=== PATIENT | female | born 1950 | race Caucasian/White ===

== ENCOUNTER 2017-12-28 19:34 | Inpatient (IN) | payer MEDICARE ==
[2017-12-28] MEDS ORDERED: Sodium Chloride 0.9% 1,000 ML IV SCH (20:20)
[2017-12-28 20:41] LABS: % BASOPHILS 0.2 % (0.0-2.0); % EOSINOPHILS 1.1 % (0.0-5.0); % LYMPHOCYTES 16.5 % (20.0-50.0); % NEUTROPHILS 77.2 % (40.0-80.0); EOSINOPHILE ABSOLUTE 0.2 Th/cmm (0.1-0.4); HEMATOCRIT 31.1 % (41.0-60); HEMOGLOBIN 10.3 gm/dL (12-16); LYMPHOCYTE ABSOLUTE 2.4 Th/cmm (1.5-3.0); MEAN CELL VOLUME 79.4 fl (81-100); MEAN CORPUSCULAR HEMOGLOBIN 26.4 pg (27.0-31.0); MEAN CORPUSCULAR HGB CONC 33.3 pg (28.0-36.0); MEAN PLATELET VOLUME 7.1 fl; MONOCYTE ABSOLUTE 0.7 Th/cmm (0.3-1.0); NEUTROPHILE ABSOLUTE 11.1 Th/cmm (1.8-8.0); PLATELET COUNT 330 Th/cmm (150-400); RED BLOOD COUNT 3.92 Mil/cmm (3.80-5.20); RED CELL DISTRIBUTION WIDTH 21.3 % (11.5-20.0); WHITE BLOOD COUNT 14.4 Th/cmm (4.8-10.8)
[2017-12-28 20:56] LABS: ALBUMIN 3.2 gm/dL (3.7-5.3); ANION GAP 13.2 (7.0-16.0); BILIRUBIN,TOTAL 0.5 mg/dL (0.3-1.0); CALCIUM SERUM 9.5 mg/dL (8.6-10.3); CARBON DIOXIDE 27.8 mEq/L (21.0-31.0); CREATININE - SERUM 1.9 mg/dL (0.6-1.2); GFR AFRICAN-AMERICAN 33.8 ml/min (>90); GFR NON AFRICAN-AMERICAN 27.9 ml/min; MAGNESIUM 2.3 mg/dL (1.9-2.7); TOTAL PROTEIN,SERUM 6.3 gm/dL (6.0-8.3)
[2017-12-29 00:57] LABS: URINE SOURCE CATH
[2017-12-29 01:07] LABS: URINE BILIRUBIN NEGATIVE (NEGATIVE); URINE CLARITY CLOUDY (CLEAR); URINE COLOR YELLOW; URINE GLUCOSE (UA) NEGATIVE (NEGATIVE); URINE KETONE NEGATIVE (NEGATIVE); URINE MICROSCOPIC INDICATED? YES
[2017-12-29 01:08] LABS: URINE BLOOD NEGATIVE (NEGATIVE); URINE NITRATE NEGATIVE (NEGATIVE); URINE PROTEIN 30 mg/dL (NEGATIVE); URINE UROBILINOGEN 0.2 E.U./dL (0.2 - 1.0)
[2017-12-29 01:09] LABS: URINE LEUKOCYTE ESTERASE MODERATE (NEGATIVE)
[2017-12-29 01:10] LABS: URINE RBC 0-2 /hpf (0-5)
[2017-12-29 01:11] LABS: URINE BACTERIA 2+ /hpf (NONE SEEN); URINE EPITHELIAL CELLS FEW /lpf (FEW); URINE WBC 25-50 /hpf (0-5)
[2017-12-29 01:24] LABS: AMPHETAMINE URINE NEGATIVE (NEGATIVE); BARBITURATES URINE NEGATIVE (NEGATIVE); COCAINE METABOLITE QUAL URINE NEGATIVE (NEGATIVE); METHAMPHETAMINES QUAL URINE NEGATIVE (NEGATIVE); PHENCYCLIDINE (PCP) URINE NEGATIVE (NEGATIVE)
[2017-12-29 01:25] LABS: BENZODIAZEPINES QUAL URINE NEGATIVE (NEGATIVE); CANNABINOID THC NEGATIVE (NEGATIVE); METHADONE URINE NEGATIVE (NEGATIVE); OPIATES (MORPHINE) QUAL. URINE NEGATIVE (NEGATIVE); TRICYCLICS (TCA) QUAL. URINE NEGATIVE (NEGATIVE)
[2017-12-29] MEDS ORDERED: Ciprofloxacin 400mg Premix PB 400 MG/200 ML BAG IV ONE ×2 (01:41→02:06)
--- NOTE | 2017-12-29 01:48 | ED Physician Chart ---
ED Chief Complaint/HPI - Patient Information Date Seen:: 12/28/17 Time Seen:: 20:25 Chief Complaint:: nausea, vomiting & diarrhea History of Present Illness:: nausea, vomiting & diarrhea in a diabetic with a h/o severe UTI's. and sepsis. Allergies:: Allergies Allergy/AdvReac Type Severity Reaction Status Date / Time Gandolinium related agent Allergy Uncoded 12/28/17 20:24 Vitals:: Vital Signs - 8 hr 12/28/17 20:24 Temp 98.2 F HR 101 RR 20 BP 152/82 O2 Sat % 95 Historian:: Patient, Medical Records Review:: Transfer documents Reviewed ED Review of Systems - Review of Systems General/Constitutional: No fever, No chills, No weight loss, No weakness, No diaphoresis, No edema, No loss of appetite Skin: No skin lesions, No rash, No bruising Head: No headache, No light-headedness Eyes: No loss of vision, No pain, No diplopia ENT: No earache, No nasal drainage, No sore throat, No tinnitus Neck: No neck pain, No swelling, No thyromegaly, No stiffness, No mass noted Cardio Vascular: No chest pain, No palpitations, No PND, No orthopnea, No edema Pulmonary: No SOB, No cough, No sputum, No wheezing GI: Nausea, Vomiting, Diarrhea G/U: Dysuria Musculoskeletal: No bone or joint pain, No back pain, No muscle pain Endocrine: No polyuria, No polydipsia Psychiatric: No prior psych history, No depression, No anxiety, No suicidal ideation Hematopoietic: No bruising, No lymphadenopathy Allergic/Immuno: No urticaria, No angioedema Neurological: No syncope, No focal symptoms, No weakness, No paresthesia, No headache, No seizure, No dizziness, No confusion, No vertigo ED Past Medical History - Past Medical History Past Medical History: HTN, DM Surgical History: other (femur surgery) Family Medical History - Family Member Mother History Unknown: Yes ED Physical Exam - Physical Examination General/Constitutional: Awake, Well-developed, well-nourished, Alert, No distress, GCS 15, Non-toxic appearing, Ambulatory Head: Atraumatic Eyes: Lids, conjuctiva normal, PERRL, EOMI Skin: Nl inspection, No rash, No skin lesions, No ecchymosis, Well hydrated, No lymphadenopathy ENMT: External ears, nose nl, Nasal exam nl, Lips, teeth, gums nl Neck: Nontender, Full ROM w/o pain, No JVD, No nuchal rigidity, No bruit, No mass, No stridor Respiratory: Nl effort/Exclusion, Clear to Auscultation, No Wheeze/Rhonchi/Rales Cardio Vascular: RRR, No murmur, gallop, rubs, NL S1 S2 GI: No tenderness/rebounding/guarding, No organomegaly, No hernia, Normal BS's, Nondistended, No mass/bruits, No McBurney tenderness : No CVA tenderness Other Extremities comments:: LLE with scar from prior femur fracture surgery. ED Labs/Radiology/EKG Results - Lab Results Results: Laboratory Tests 12/28/17 12/28/17 12/29/17 20:35 20:35 00:45 WBC 14.4 H RBC 3.92 Hgb 10.3 L Hct 31.1 L MCV 79.4 L MCH 26.4 L MCHC Differential 33.3 RDW 21.3 H Plt Count 330 MPV 7.1 Neutrophils % 77.2 Lymphocytes % 16.5 L Monocytes % 5.0 Eosinophils % 1.1 Basophils % 0.2 Sodium 135 L Potassium 4.0 Chloride 98 Carbon Dioxide 27.8 Anion Gap 13.2 BUN 32 H Creatinine 1.9 H Est GFR ( Amer) 33.8 Est GFR (Non-Af Amer) 27.9 BUN/Creatinine Ratio 16.8 Glucose 208 H POC Glucose Calcium 9.5 Phosphorus 4.0 Magnesium 2.3 Total Bilirubin 0.5 AST 10 L ALT 7 Alkaline Phosphatase 82 Total Protein 6.3 Albumin 3.2 L Globulin 3.1 Albumin/Globulin Ratio 1.0 Urine Source CATH Urine Color YELLOW Urine Clarity CLOUDY H Urine pH 6.0 Ur Specific [place] 1.010 Urine Protein 30 H Urine Glucose (UA) NEGATIVE Urine Ketones NEGATIVE Urine Blood NEGATIVE Urine Nitrate NEGATIVE Urine Bilirubin NEGATIVE Urine Urobilinogen 0.2 Ur Leukocyte Esterase MODERATE H Urine RBC 0-2 Urine WBC 25-50 H Ur Epithelial Cells FEW Urine Bacteria 2+ H Stool Occult Blood Urine Opiates Screen Urine Methadone Screen Ur Barbiturates Screen Ur Tricyclics Screen Ur Phencyclidine Scrn Amphetamines Screen U Methamphetamines Scrn U Benzodiazepines Scrn U Cocaine Metab Screen U Cannabinoids Screen 12/29/17 12/29/17 12/29/17 00:45 00:45 00:49 WBC RBC Hgb Hct MCV MCH MCHC Differential RDW Plt Count MPV Neutrophils % Lymphocytes % Monocytes % Eosinophils % Basophils % Sodium Potassium Chloride Carbon Dioxide Anion Gap BUN Creatinine Est GFR ( Amer) Est GFR (Non-Af Amer) BUN/Creatinine Ratio Glucose POC Glucose 215 H Calcium Phosphorus Magnesium Total Bilirubin AST ALT Alkaline Phosphatase Total Protein Albumin Globulin Albumin/Globulin Ratio Urine Source Urine Color Urine Clarity Urine pH Ur Specific [place] Urine Protein Urine Glucose (UA) Urine Ketones Urine Blood Urine Nitrate Urine Bilirubin Urine Urobilinogen Ur Leukocyte Esterase Urine RBC Urine WBC Ur Epithelial Cells Urine Bacteria Stool Occult Blood NEGATIVE Urine Opiates Screen NEGATIVE Urine Methadone Screen NEGATIVE Ur Barbiturates Screen NEGATIVE Ur Tricyclics Screen NEGATIVE Ur Phencyclidine Scrn NEGATIVE Amphetamines Screen NEGATIVE U Methamphetamines Scrn NEGATIVE U Benzodiazepines Scrn NEGATIVE U Cocaine Metab Screen NEGATIVE U Cannabinoids Screen NEGATIVE ED Assessment - Assessment General Assessment: called Dr. Reynolds to admit the patient at 1:47 a.m. ED Septic Shock - . Is Septic Shock (SBP<90, OR Lactate>4 mmol\L) present?: No - <6hrs of presentation: Vital Signs: Vital Signs - 8 hr 12/28/17 20:24 Temp 98.2 F HR 101 RR 20 BP 152/82 O2 Sat % 95 ED Reassessment (Disposition) - Reassessment Reassessment Condition:: Improved - Diagnosis Diagnosis:: Nausea, vomiting, diarrhea Diabetes mellitus leukocytosis renal insufficiency anemia h/o sepsis - Patient Disposition Discharge/Transfer:: Acute Care w/in this hosp Admitted to:: Med/Surg Condition at Disposition:: Stable, Improved
[2017-12-29] MEDS ORDERED: Levofloxacin 500mg/100mL 500 MG/100 ML BAG IV SCH (08:27)
[2017-12-29 08:59] LABS: % BASOPHILS 0.3 % (0.0-2.0); % EOSINOPHILS 2.9 % (0.0-5.0); % LYMPHOCYTES 17.8 % (20.0-50.0); % MONOCYTES 5.7 % (2.0-10.0); % NEUTROPHILS 73.3 % (40.0-80.0); EOSINOPHILE ABSOLUTE 0.3 Th/cmm (0.1-0.4); HEMOGLOBIN 9.7 gm/dL (12-16); LYMPHOCYTE ABSOLUTE 1.7 Th/cmm (1.5-3.0); MEAN CELL VOLUME 81.7 fl (81-100); MEAN CORPUSCULAR HEMOGLOBIN 27.4 pg (27.0-31.0); MEAN CORPUSCULAR HGB CONC 33.5 pg (28.0-36.0); MEAN PLATELET VOLUME 6.9 fl; MONOCYTE ABSOLUTE 0.6 Th/cmm (0.3-1.0); NEUTROPHILE ABSOLUTE 7.2 Th/cmm (1.8-8.0); PLATELET COUNT 336 Th/cmm (150-400); RED BLOOD COUNT 3.55 Mil/cmm (3.80-5.20); RED CELL DISTRIBUTION WIDTH 21.7 % (11.5-20.0)
[2017-12-29 09:00] LABS: WHITE BLOOD COUNT 9.8 Th/cmm (4.8-10.8)
[2017-12-29] MEDS ORDERED: DEXTROSE ISO OSM IV SCH (09:30)
[2017-12-29] MEDS ORDERED: Maalox 30 mL Cup PO PRN (09:30)
[2017-12-29] MEDS ORDERED: Fleet Enema 135 mL RC PRN (09:30)
[2017-12-29] MEDS ORDERED: CEFEPIME HCL IV SCH (09:30)
[2017-12-29] MEDS ORDERED: Magnesium Hydroxide (MOM) 30 mL UDC PO PRN (09:30)
[2017-12-29] MEDS ORDERED: INSULIN ASPART SLIDING SCALE 100 UNITS/ML UNIT SUBQ SCH (09:30)
[2017-12-29 09:35] VITALS: BP 146/73
[2017-12-29] MEDS ORDERED: ENOXAPARIN SODIUM 40 MG SQ SCH (09:45)
[2017-12-29] MEDS ORDERED: Enoxaparin 40 mg/0.4 mL 0.4mL Syr SUBQ SCH (09:45)
[2017-12-29] MEDS: Ferrous Sulfate 325 MG TAB PO SCH ×2 (10:39→16:05)
[2017-12-29] MEDS: Enoxaparin 30 mg/0.3 mL 0.3mL Syr SUBQ SCH (10:41)
--- NOTE | 2017-12-29 10:43 | History & Physical ---
ADMIT DATE: 12/29/2017 CHIEF COMPLAINT: Nausea, vomiting. HISTORY OF PRESENT ILLNESS: This is a 67-year-old female who was admitted from [facility] facility to the Emergency Room of [facility] due to episode of nausea and vomiting. REVIEW OF SYSTEMS: GENERAL: This is a 67-year-old female that appears as stated. Denies weakness. Denies fever. HEAD: Denies headache. Denies dizziness. EYES: Denies eye pain. Denies blurring of vision. NECK: Denies neck pain. Denies nuchal rigidity. CHEST: Denies chest pain. Denies palpitation. PULMONARY: Denies coughing. Denies shortness of breath. GASTROINTESTINAL: Positive nausea. Positive vomiting. Denies diarrhea. MUSCULOSKELETAL: Denies joint pain. Denies muscle pain. SOCIAL HISTORY: The patient currently lives in a [facility] facility prior to hospitalization. Denies nicotine. Denies alcohol. Denies illicit drug abuse. PAST SURGICAL HISTORY: Unremarkable. FAMILY HISTORY: Unremarkable. PAST MEDICAL HISTORY: Includes diabetes, hypertension, iron deficiency anemia, osteoarthritis. PHYSICAL EXAMINATION: VITAL SIGNS: Temperature 98.4, heart rate 95, blood pressure 146/73, respirations 20, 99% on room air. HEENT: Head is atraumatic, normocephalic. Eyes: Bilateral conjunctivae are clear. Bilateral pupils are equally round and reactive. NECK: Supple. No JVD. CARDIOVASCULAR: S1 and S2, without murmur. PULMONARY: Clear to auscultation. GASTROINTESTINAL: Soft and nontender without guarding. Positive bowel sounds. MUSCULOSKELETAL: No clubbing. No cyanosis noted. ASSESSMENT: 1. Urinary tract infection. 2. Nausea. 3. Vomiting. 4. Diabetes. 5. Hypertension. PLAN: We will admit the patient and we will give the patient antiemetics. We will put the patient on liquid diet and advance as tolerated. We will also get a consult with ID doctor. We will do medication accordingly. Treatment plans were discussed with the patient's nurse. Treatment plans were discussed with Dr. Reynolds. JOB# [id number]
[2017-12-29 11:15] LABS: CALCIUM SERUM 9.3 mg/dL (8.6-10.3); CREATININE - SERUM 1.9 mg/dL (0.6-1.2); GFR AFRICAN-AMERICAN 33.8 ml/min (>90); GFR NON AFRICAN-AMERICAN 27.9 ml/min
[2017-12-29 11:28] LABS: ANION GAP 14.6 (7.0-16.0); POTASSIUM SERUM 3.6 mEq/L (3.5-5.1)
[2017-12-29] MEDS: INSULIN ASPART SLIDING SCALE 100 UNITS/ML UNIT SUBQ SCH ×3 (12:05→21:22)
[2017-12-29] MEDS: Cefepime 2 gm in 0.9% NS 100 mL IV SCH (12:05)
[2017-12-29] MEDS: Levofloxacin 250 mg/50 mL Premix Bag IV SCH (13:25)
[2017-12-29] MEDS: Lactulose 10 Gm/15 mL 30mL UDC PO SCH (16:05)
[2017-12-29] MEDS: Insulin Detemir 100 units/mL 10mL Vial SUBQ SCH (17:38)
[2017-12-30] MEDS: INSULIN ASPART SLIDING SCALE 100 UNITS/ML UNIT SUBQ SCH ×4 (07:00→20:36)
[2017-12-30] MEDS: Lactulose 10 Gm/15 mL 30mL UDC PO SCH ×2 (09:05→17:58)
[2017-12-30] MEDS: Ferrous Sulfate 325 MG TAB PO SCH ×2 (09:05→17:57)
[2017-12-30] MEDS: Enoxaparin 30 mg/0.3 mL 0.3mL Syr SUBQ SCH (09:07)
--- NOTE | 2017-12-30 09:46 | General Progress Note ---
Subjective - Review of Systems Events since last encounter: patient admitted with c/o nausea and vomiting Objective - Results Result Diagrams: 12/29/17 08:47 12/29/17 08:47 Recent Labs: Laboratory Last Values WBC 9.8 Th/cmm (4.8-10.8) D 12/29/17 08:47 RBC 3.55 Mil/cmm (3.80-5.20) L 12/29/17 08:47 Hgb 9.7 gm/dL (12-16) L 12/29/17 08:47 Hct 29.0 % (41.0-60) L 12/29/17 08:47 MCV 81.7 fl (81-100) 12/29/17 08:47 MCH 27.4 pg (27.0-31.0) 12/29/17 08:47 MCHC Differential 33.5 pg (28.0-36.0) 12/29/17 08:47 RDW 21.7 % (11.5-20.0) H 12/29/17 08:47 Plt Count 336 Th/cmm (150-400) 12/29/17 08:47 MPV 6.9 fl 12/29/17 08:47 Neutrophils % 73.3 % (40.0-80.0) 12/29/17 08:47 Lymphocytes % 17.8 % (20.0-50.0) L 12/29/17 08:47 Monocytes % 5.7 % (2.0-10.0) 12/29/17 08:47 Eosinophils % 2.9 % (0.0-5.0) 12/29/17 08:47 Basophils % 0.3 % (0.0-2.0) 12/29/17 08:47 Sodium 137 mEq/L (136-145) 12/29/17 08:47 Potassium 3.6 mEq/L (3.5-5.1) 12/29/17 08:47 Chloride 101 mEq/L (98-107) 12/29/17 08:47 Carbon Dioxide 25.0 mEq/L (21.0-31.0) 12/29/17 08:47 Anion Gap 14.6 (7.0-16.0) 12/29/17 08:47 BUN 33 mg/dL (7-25) H 12/29/17 08:47 Creatinine 1.9 mg/dL (0.6-1.2) H 12/29/17 08:47 Est GFR ( Amer) 33.8 ml/min (>90) 12/29/17 08:47 Est GFR (Non-Af Amer) 27.9 ml/min 12/29/17 08:47 BUN/Creatinine Ratio 17.4 12/29/17 08:47 Glucose 196 mg/dL (70-105) H 12/29/17 08:47 POC Glucose 145 MG/DL (70 - 105) H 12/30/17 06:54 Calcium 9.3 mg/dL (8.6-10.3) 12/29/17 08:47 Phosphorus 4.0 mg/dL (2.5-5.0) 12/28/17 20:35 Magnesium 2.3 mg/dL (1.9-2.7) 12/28/17 20:35 Total Bilirubin 0.5 mg/dL (0.3-1.0) 12/28/17 20:35 AST 10 U/L (13-39) L 12/28/17 20:35 ALT 7 U/L (7-52) 12/28/17 20:35 Alkaline Phosphatase 82 U/L (34-104) 12/28/17 20:35 Total Protein 6.3 gm/dL (6.0-8.3) 12/28/17 20:35 Albumin 3.2 gm/dL (3.7-5.3) L 12/28/17 20:35 Globulin 3.1 gm/dL 12/28/17 20:35 Albumin/Globulin Ratio 1.0 (1.0-1.8) 12/28/17 20:35 Urine Source CATH 12/29/17 00:45 Urine Color YELLOW 12/29/17 00:45 Urine Clarity CLOUDY (CLEAR) H 12/29/17 00:45 Urine pH 6.0 (4.6 - 8.0) 12/29/17 00:45 Ur Specific [place] 1.010 (1.005-1.030) 12/29/17 00:45 Urine Protein 30 mg/dL (NEGATIVE) H 12/29/17 00:45 Urine Glucose (UA) NEGATIVE mg/dL (NEGATIVE) 12/29/17 00:45 Urine Ketones NEGATIVE mg/dL (NEGATIVE) 12/29/17 00:45 Urine Blood NEGATIVE (NEGATIVE) 12/29/17 00:45 Urine Nitrate NEGATIVE (NEGATIVE) 12/29/17 00:45 Urine Bilirubin NEGATIVE (NEGATIVE) 12/29/17 00:45 Urine Urobilinogen 0.2 E.U./dL (0.2 - 1.0) 12/29/17 00:45 Ur Leukocyte Esterase MODERATE (NEGATIVE) H 12/29/17 00:45 Urine RBC 0-2 /hpf (0-5) 12/29/17 00:45 Urine WBC 25-50 /hpf (0-5) H 12/29/17 00:45 Ur Epithelial Cells FEW /lpf (FEW) 12/29/17 00:45 Urine Bacteria 2+ /hpf (NONE SEEN) H 12/29/17 00:45 Stool Occult Blood NEGATIVE (NEGATIVE) 12/29/17 00:45 Urine Opiates Screen NEGATIVE (NEGATIVE) 12/29/17 00:45 Urine Methadone Screen NEGATIVE (NEGATIVE) 12/29/17 00:45 Ur Barbiturates Screen NEGATIVE (NEGATIVE) 12/29/17 00:45 Ur Tricyclics Screen NEGATIVE (NEGATIVE) 12/29/17 00:45 Ur Phencyclidine Scrn NEGATIVE (NEGATIVE) 12/29/17 00:45 Amphetamines Screen NEGATIVE (NEGATIVE) 12/29/17 00:45 U Methamphetamines Scrn NEGATIVE (NEGATIVE) 12/29/17 00:45 U Benzodiazepines Scrn NEGATIVE (NEGATIVE) 12/29/17 00:45 U Cocaine Metab Screen NEGATIVE (NEGATIVE) 12/29/17 00:45 U Cannabinoids Screen NEGATIVE (NEGATIVE) 12/29/17 00:45 - Physical Exam Vitals and I&O: Vital Signs Temp 97.4 F 12/30/17 08:00 Pulse 75 12/30/17 09:05 Resp 17 12/30/17 08:00 BP 142/65 12/30/17 09:05 Pulse Ox 95 12/30/17 08:00 Intake & Output 12/29/17 12/30/17 12/30/17 18:59 06:59 18:59 Intake Total 800 500 Balance 800 500 Weight (lbs) 108.409 kg 105.347 kg 105.347 kg Intake: Oral 800 500 Other: # Voids 3 4 # Bowel Movements 1 1 Stool Characteristics Hard Hard Weight Source Bedscale Bedscale Bedscale Active Medications: Current Medications Acetaminophen (Tylenol) 650 mg PO Q4H PRN PRN Reason: pain Stop: 02/27/18 09:29 Al Hydrox/Mg Hydrox/Simethicone (Maalox) 15 ml PO Q4H PRN PRN Reason: Constipation Stop: 02/27/18 09:29 Amlodipine Besylate (Norvasc) 5 mg PO DAILY DES Stop: 02/27/18 09:59 Last Admin: 12/30/17 09:03 Dose: 5 mg Bisacodyl (Dulcolax 10 Mg Supp) 10 mg RC DAILY PRN PRN Reason: Constipation Stop: 02/27/18 09:29 Cyanocobalamin (Vitamin B12) 1,000 mcg PO DAILY [facility] Stop: 02/27/18 09:59 Last Admin: 12/30/17 09:07 Dose: 1,000 mcg Docusate Sodium (Colace) 100 mg PO BID [facility] Stop: 02/27/18 09:59 Last Admin: 12/30/17 09:04 Dose: 100 mg Enoxaparin Sodium (Lovenox) 30 mg SUBQ DAILY [facility] Stop: 02/27/18 09:59 Last Admin: 12/30/17 09:07 Dose: 30 mg Ferrous Sulfate (Iron) 325 mg PO BID [facility] Stop: 02/27/18 09:59 Last Admin: 12/30/17 09:05 Dose: 325 mg Levofloxacin (Levaquin Pb) 250 mg in 50 mls @ 50 mls/hr IV Q24HR [facility] Stop: 02/27/18 13:59 Last Admin: 12/29/17 13:25 Dose: 50 mls/hr Cefepime HCl 2 gm/ Sodium (Chloride) 100 mls @ 100 mls/hr IV Q24H [facility] Stop: 02/27/18 10:59 Last Admin: 12/29/17 12:05 Dose: 100 mls/hr Insulin Aspart (Novolog Insulin Sliding Scale) 0 units SUBQ ACHS [facility]; Protocol Stop: 02/27/18 11:29 Last Admin: 12/30/17 07:00 Dose: Not Given Insulin Detemir (Levemir Insulin) 20 units SUBQ QPM [facility]; Protocol Stop: 02/27/18 16:59 Last Admin: 12/29/17 17:38 Dose: 20 units Insulin Detemir (Levemir Insulin) 5 units SUBQ QAM [facility]; Protocol Stop: 02/28/18 08:59 Lactulose (Cephulac) 10 gm PO BID [facility] Stop: 02/27/18 16:59 Last Admin: 12/30/17 09:05 Dose: Not Given Magnesium Hydroxide (Milk Of Magnesia) 30 ml PO Q6H PRN PRN Reason: Constipation Stop: 02/27/18 09:29 Meclizine HCl (Antivert) 25 mg PO TID [facility] Stop: 02/27/18 09:59 Last Admin: 12/30/17 09:04 Dose: 25 mg Metoprolol Tartrate (Lopressor) 50 mg PO Q12HR [facility] Stop: 02/27/18 09:59 Last Admin: 12/30/17 09:05 Dose: 50 mg Miscellaneous (Clinical Monitoring) 1 ea MC PRN PRN PRN Reason: RX MONITORING Stop: 02/27/18 08:32 Nitroglycerin (Nitrostat) 0.4 mg SL Q5M PRN PRN Reason: Chest Pain Stop: 02/27/18 09:59 Ondansetron HCl (Zofran Odt) 4 mg PO Q8H PRN PRN Reason: Nausea Stop: 02/27/18 09:29 Ondansetron HCl (Zofran) 4 mg IV Q8H PRN PRN Reason: Nausea / Vomiting Stop: 02/27/18 09:34 Psyllium Hydrophilic Mucilloid (Metamucil) 1 pkt PO DAILY [facility] Stop: 02/27/18 09:59 Last Admin: 12/29/17 10:39 Dose: 1 pkt Sodium Phosphate (Fleet Enema) 135 ml RC DAILY PRN PRN Reason: Constipation Stop: 02/27/18 09:29 General: No acute distress HEENT: Atraumatic Neck: Supple Cardiovascular: Regular rate Assessment/Plan - Problem List Patient Problems: All Active Problems Diabetes (Acute) E11.9 HTN (hypertension) (Acute) I10 Nausea (Acute) R11.0 UTI (urinary tract infection) (Acute) Vomiting (Acute) R11.10 - Plan Plan: as per order sheet
[2017-12-30] MEDS: Insulin Detemir 100 units/mL 10mL Vial SUBQ SCH ×2 (10:48→17:45)
[2017-12-30] MEDS: Cefepime 2 gm in 0.9% NS 100 mL IV SCH (11:00)
[2017-12-30] MEDS: Levofloxacin 250 mg/50 mL Premix Bag IV SCH (14:00)
--- NOTE | 2017-12-30 19:02 | Consultation ---
Consult Note - Consult Note Service Date: 12/30/17 Referring Physician: Joseph Reynolds Consult Note: PHYSICIAN Consultation Note: Date of Admission: 12/29/17 Purpose of Consultation: Chief Complaint: Patient ARMANDO MENDEZ was admitted to location Medical/ Surgical Unit I with URINARY TRACT INFECTION. History of Present Illness:67-year-old female with a past medical history of for diabetes mellitus type 2, hypertension, iron deficiency anemia, osteoarthritis brought in from nursing facility for nausea and vomiting. On initial evaluation her temperature was 98.2F and WBC count was 14,400. Urinalysis showed pyuria and bacteriuria. Levaquin and cefepime were started. ID consult was called for further antibiotic management. Past Medical History: diabetes mellitus type 2, hypertension, iron deficiency anemia, osteoarthritis Allergies Allergy/AdvReac Type Severity Reaction Status Date / Time Gandolinium related agent Allergy Uncoded 12/28/17 20:24 Vital Signs Temp 96.7 F 12/30/17 15:32 Pulse 74 12/30/17 15:32 Resp 18 12/30/17 15:32 BP 105/69 12/30/17 15:32 Pulse Ox 95 12/30/17 15:32 Intake & Output 12/29/17 12/30/17 12/30/17 18:59 06:59 18:59 Intake Total 950 500 Balance 950 500 Weight (lbs) 108.409 kg 105.347 kg 105.347 kg Intake: Intake, IV Amount 150 Cefepime 2 gm In Sodium 100 Chloride 0.9% 100 ml @ 100 mls/hr IV Q24H DES Rx #:[id number] Levofloxacin 250mg/50mL 50 250 mg In 50 ml @ 50 mls/ hr IV Q24HR DES Rx#: [id number] Oral 800 500 Other: # Voids 3 4 # Bowel Movements 1 1 Stool Characteristics Hard Hard Weight Source Bedscale Bedscale Bedscale Laboratory Results - last 24 hr 12/29/17 12/30/17 12/30/17 20:21 06:54 10:57 POC Glucose 246 H 145 H 258 H 12/30/17 16:46 POC Glucose 212 H Home Medication Medication Instructions Recorded Type Acetaminophen 650 mg PO Q4HR PRN 12/28/17 History Al Hyd/Mg Hyd/Simethicone [Maalox] 15 ml PO Q4HR PRN 12/28/17 History Amlodipine Besylate 5 mg PO DAILY 12/28/17 History Bisacodyl [Dulcolax 10 Mg Supp] 10 mg PRN PRN 12/28/17 History Cefepime HCl/Dextrose, Iso-Osm 2 gm IV Q24HR 12/28/17 History [Cefepime] Cyanocobalamin [Vitamin B12] 1,000 mcg PO DAILY 12/28/17 History Docusate Sodium 100 mg PO BID 12/28/17 History Enoxaparin Sodium 40 mg SQ DAILY 12/28/17 History Enoxaparin [Lovenox] 40 mg SUBQ DAILY 12/28/17 History Ferrous Sulfate 325 mg PO BID 12/28/17 History Fleet Enema 1 dose PRN PRN 12/28/17 History Insulin Aspart Sliding Scale 0 units SUBQ PRN 12/28/17 History [NovoLOG INSULIN SLIDING SCALE] Insulin Detemir [Levemir Insulin] 5 units SUBQ QAM 12/28/17 History Insulin Detemir [Levemir] 20 unit SQ QPM 12/28/17 History Lactulose [Constulose] 10 gm PO BID 12/28/17 History Magnesium Hydroxide [Milk of 400 mg PO PRN PRN 12/28/17 History Magnesia] Meclizine [Antivert*] 25 mg PO TID 12/28/17 History Metoprolol Tartrate [Lopressor] 50 mg PO Q12HR 12/28/17 History Nitroglycerin 0.4 mg/hr 0.4 mg SUBD PRN PRN 12/28/17 History [Transderm-Nitro] Ondansetron [Ondansetron Odt] 4 mg PO PRN PRN 12/28/17 History Psyllium Husk 1 packet PO DAILY 12/28/17 History Current Medications Generic Name Dose Route Start Last Admin Trade Name Freq PRN Reason Stop Dose Admin Acetaminophen 650 mg 12/29/17 09:30 Tylenol PO 02/27/18 09:29 Q4H PRN pain Al Hydrox/Mg Hydrox/Simethicone 15 ml 12/29/17 09:30 Maalox PO 02/27/18 09:29 Q4H PRN Constipation Amlodipine Besylate 5 mg 12/29/17 10:00 12/30/17 09:03 Norvasc PO 02/27/18 09:59 5 mg DAILY DES Administration Bisacodyl 10 mg 12/29/17 09:30 Dulcolax 10 Mg Supp RC 02/27/18 09:29 DAILY PRN Constipation Cyanocobalamin 1,000 mcg 12/29/17 10:00 12/30/17 09:07 Vitamin B12 PO 02/27/18 09:59 1,000 mcg DAILY DES Administration Docusate Sodium 100 mg 12/29/17 10:00 12/30/17 17:57 Colace PO 02/27/18 09:59 100 mg BID DES Administration Enoxaparin Sodium 30 mg 12/29/17 10:00 12/30/17 09:07 Lovenox SUBQ 02/27/18 09:59 30 mg DAILY DES Administration Ferrous Sulfate 325 mg 12/29/17 10:00 12/30/17 17:57 Iron PO 02/27/18 09:59 325 mg BID DES Administration Levofloxacin 250 mg in 50 mls @ 50 mls/hr 12/29/17 14:00 12/30/17 14:00 Levaquin Pb IV 02/27/18 13:59 50 mls/hr Q24HR DES Administration Cefepime HCl 2 gm/ Sodium 100 mls @ 100 mls/hr 12/29/17 11:00 12/30/17 11:00 Chloride IV 02/27/18 10:59 100 mls/hr Q24H DES Administration Insulin Aspart 0 units 12/29/17 11:30 12/30/17 16:00 Novolog Insulin Sliding Scale SUBQ 02/27/18 11:29 4 units ACHS [facility] Administration Protocol Insulin Detemir 20 units 12/29/17 17:00 12/30/17 17:45 Levemir Insulin SUBQ 02/27/18 16:59 20 units QPM DES Administration Protocol Insulin Detemir 5 units 12/30/17 09:00 12/30/17 10:48 Levemir Insulin SUBQ 02/28/18 08:59 Not Given QAM [facility] Protocol Lactulose 10 gm 12/29/17 17:00 12/30/17 17:58 Cephulac PO 02/27/18 16:59 Not Given BID DES Magnesium Hydroxide 30 ml 12/29/17 09:30 Milk Of Magnesia PO 02/27/18 09:29 Q6H PRN Constipation Meclizine HCl 25 mg 12/29/17 10:00 12/30/17 14:48 Antivert PO 02/27/18 09:59 25 mg TID DES Administration Metoprolol Tartrate 50 mg 12/29/17 10:00 12/30/17 09:05 Lopressor PO 02/27/18 09:59 50 mg Q12HR DES Administration Miscellaneous 1 ea 12/29/17 08:33 Clinical Monitoring MC 02/27/18 08:32 PRN PRN RX MONITORING Nitroglycerin 0.4 mg 12/29/17 10:00 Nitrostat SL 02/27/18 09:59 Q5M PRN Chest Pain Ondansetron HCl 4 mg 12/29/17 09:30 Zofran Odt PO 02/27/18 09:29 Q8H PRN Nausea Ondansetron HCl 4 mg 12/29/17 09:35 Zofran IV 02/27/18 09:34 Q8H PRN Nausea / Vomiting Psyllium Hydrophilic Mucilloid 1 pkt 12/29/17 10:00 12/30/17 10:48 Metamucil PO 02/27/18 09:59 Not Given DAILY DES Sodium Phosphate 135 ml 12/29/17 09:30 Fleet Enema RC 02/27/18 09:29 DAILY PRN Constipation Review of Systems: A 12 point ROS was reviewed with the pertinent positive and negatives noted in the HPI. Social History Smoking Status Unknown if ever smoked Family Medical History Family Medical History Start: 12/29/17 08: 27 Freq: ONCE Status: Active Protocol: Document 12/29/17 08:27 AKI (Rec: 12/29/17 10:48 AKI [id number]) Family Medical History Mother History Unknown Yes Physical Exam: General: Comfortable not in acute distress HEENT: Head: Normocephalic atraumatic. Oral cavity: Moist, pink tongue. Eyes: Pallor is present icterus. Neck: Supple, no JVD. No carotid bruit. No use of accessory muscles Cardio: S1 and S2 within normal with regular rhythm. Respiratory: Vesicular breath sound. No wheezing. Abdominal: Soft, nontender, nondistended bowel sounds present Genital/Urinary: Deferred Extremities: No cyanosis no clubbing no edema Neurological: Alert, awake, oriented 3 Assessment: 1. UTI. 2. Leukocytosis improved. 3. diabetes mellitus type 2. 4. hypertension. 5. Iron deficiency anemia. 6. osteoarthritis.. Plan: Continue Levaquin and cefepime. Thank you, Dr Reynolds for involving me in taking care of this patient. Signed, Jalil Avitia M.D. [id number]
[2017-12-30 23:02] LABS: A1C % 8.2 % (4.0-6.0)
[2017-12-31 05:23] LABS: % EOSINOPHILS 4.6 % (0.0-5.0); % LYMPHOCYTES 27.7 % (20.0-50.0); % MONOCYTES 5.3 % (2.0-10.0); % NEUTROPHILS 61.4 % (40.0-80.0); BASOPHILE ABSOLUTE 0.1 Th/cumm (0-0.2); EOSINOPHILE ABSOLUTE 0.4 Th/cmm (0.1-0.4); HEMATOCRIT 29.4 % (41.0-60); HEMOGLOBIN 9.8 gm/dL (12-16); LYMPHOCYTE ABSOLUTE 2.5 Th/cmm (1.5-3.0); MEAN CELL VOLUME 79.7 fl (81-100); MEAN CORPUSCULAR HEMOGLOBIN 26.6 pg (27.0-31.0); MEAN CORPUSCULAR HGB CONC 33.4 pg (28.0-36.0); MEAN PLATELET VOLUME 6.7 fl; MONOCYTE ABSOLUTE 0.5 Th/cmm (0.3-1.0); NEUTROPHILE ABSOLUTE 5.4 Th/cmm (1.8-8.0); PLATELET COUNT 410 Th/cmm (150-400); RED BLOOD COUNT 3.69 Mil/cmm (3.80-5.20); RED CELL DISTRIBUTION WIDTH 20.9 % (11.5-20.0); WHITE BLOOD COUNT 8.9 Th/cmm (4.8-10.8)
[2017-12-31 05:49] LABS: ANION GAP 11.1 (7.0-16.0); CALCIUM SERUM 9.5 mg/dL (8.6-10.3); CARBON DIOXIDE 29.7 mEq/L (21.0-31.0); CREATININE - SERUM 1.7 mg/dL (0.6-1.2); GFR AFRICAN-AMERICAN 38.4 ml/min (>90); GFR NON AFRICAN-AMERICAN 31.8 ml/min; POTASSIUM SERUM 3.8 mEq/L (3.5-5.1)
[2017-12-31] MEDS: INSULIN ASPART SLIDING SCALE 100 UNITS/ML UNIT SUBQ SCH ×4 (08:12→21:41)
[2017-12-31] MEDS ORDERED: Probiotic Screen MC PRN (08:45)
[2017-12-31] MEDS: Enoxaparin 30 mg/0.3 mL 0.3mL Syr SUBQ SCH (08:49)
[2017-12-31] MEDS: Lactulose 10 Gm/15 mL 30mL UDC PO SCH ×2 (08:50→17:06)
[2017-12-31] MEDS: Ferrous Sulfate 325 MG TAB PO SCH ×2 (08:50→16:17)
[2017-12-31] MEDS: Insulin Detemir 100 units/mL 10mL Vial SUBQ SCH ×2 (08:50→17:34)
[2017-12-31] MEDS: Lactobacillus Rhamnosus GG 15 Billion CFU CAP.SPRINK PO SCH (08:50)
[2017-12-31] MEDS: Cefepime 2 gm in 0.9% NS 100 mL IV SCH (10:15)
--- NOTE | 2017-12-31 10:33 | General Progress Note ---
Subjective - Review of Systems Events since last encounter: patient admitted with uti awake in no distress Objective - Results Result Diagrams: 12/31/17 05:05 12/31/17 05:05 Recent Labs: Laboratory Last Values WBC 8.9 Th/cmm (4.8-10.8) 12/31/17 05:05 RBC 3.69 Mil/cmm (3.80-5.20) L 12/31/17 05:05 Hgb 9.8 gm/dL (12-16) L 12/31/17 05:05 Hct 29.4 % (41.0-60) L 12/31/17 05:05 MCV 79.7 fl (81-100) L 12/31/17 05:05 MCH 26.6 pg (27.0-31.0) L 12/31/17 05:05 MCHC Differential 33.4 pg (28.0-36.0) 12/31/17 05:05 RDW 20.9 % (11.5-20.0) H 12/31/17 05:05 Plt Count 410 Th/cmm (150-400) H 12/31/17 05:05 MPV 6.7 fl 12/31/17 05:05 Neutrophils % 61.4 % (40.0-80.0) 12/31/17 05:05 Lymphocytes % 27.7 % (20.0-50.0) 12/31/17 05:05 Monocytes % 5.3 % (2.0-10.0) 12/31/17 05:05 Eosinophils % 4.6 % (0.0-5.0) 12/31/17 05:05 Basophils % 1.0 % (0.0-2.0) 12/31/17 05:05 Sodium 142 mEq/L (136-145) 12/31/17 05:05 Potassium 3.8 mEq/L (3.5-5.1) 12/31/17 05:05 Chloride 105 mEq/L (98-107) 12/31/17 05:05 Carbon Dioxide 29.7 mEq/L (21.0-31.0) 12/31/17 05:05 Anion Gap 11.1 (7.0-16.0) 12/31/17 05:05 BUN 26 mg/dL (7-25) H 12/31/17 05:05 Creatinine 1.7 mg/dL (0.6-1.2) H 12/31/17 05:05 Est GFR ( Amer) 38.4 ml/min (>90) 12/31/17 05:05 Est GFR (Non-Af Amer) 31.8 ml/min 12/31/17 05:05 BUN/Creatinine Ratio 15.3 12/31/17 05:05 Glucose 116 mg/dL (70-105) H 12/31/17 05:05 POC Glucose 160 MG/DL (70 - 105) H 12/31/17 06:41 Hemoglobin A1c % 8.2 % (4.0-6.0) H 12/28/17 20:35 Calcium 9.5 mg/dL (8.6-10.3) 12/31/17 05:05 Phosphorus 4.0 mg/dL (2.5-5.0) 12/28/17 20:35 Magnesium 2.3 mg/dL (1.9-2.7) 12/28/17 20:35 Total Bilirubin 0.5 mg/dL (0.3-1.0) 12/28/17 20:35 AST 10 U/L (13-39) L 12/28/17 20:35 ALT 7 U/L (7-52) 12/28/17 20:35 Alkaline Phosphatase 82 U/L (34-104) 12/28/17 20:35 Total Protein 6.3 gm/dL (6.0-8.3) 12/28/17 20:35 Albumin 3.2 gm/dL (3.7-5.3) L 12/28/17 20:35 Globulin 3.1 gm/dL 12/28/17 20:35 Albumin/Globulin Ratio 1.0 (1.0-1.8) 12/28/17 20:35 Urine Source CATH 12/29/17 00:45 Urine Color YELLOW 12/29/17 00:45 Urine Clarity CLOUDY (CLEAR) H 12/29/17 00:45 Urine pH 6.0 (4.6 - 8.0) 12/29/17 00:45 Ur Specific [place] 1.010 (1.005-1.030) 12/29/17 00:45 Urine Protein 30 mg/dL (NEGATIVE) H 12/29/17 00:45 Urine Glucose (UA) NEGATIVE mg/dL (NEGATIVE) 12/29/17 00:45 Urine Ketones NEGATIVE mg/dL (NEGATIVE) 12/29/17 00:45 Urine Blood NEGATIVE (NEGATIVE) 12/29/17 00:45 Urine Nitrate NEGATIVE (NEGATIVE) 12/29/17 00:45 Urine Bilirubin NEGATIVE (NEGATIVE) 12/29/17 00:45 Urine Urobilinogen 0.2 E.U./dL (0.2 - 1.0) 12/29/17 00:45 Ur Leukocyte Esterase MODERATE (NEGATIVE) H 12/29/17 00:45 Urine RBC 0-2 /hpf (0-5) 12/29/17 00:45 Urine WBC 25-50 /hpf (0-5) H 12/29/17 00:45 Ur Epithelial Cells FEW /lpf (FEW) 12/29/17 00:45 Urine Bacteria 2+ /hpf (NONE SEEN) H 12/29/17 00:45 Stool Occult Blood NEGATIVE (NEGATIVE) 12/29/17 00:45 Urine Opiates Screen NEGATIVE (NEGATIVE) 12/29/17 00:45 Urine Methadone Screen NEGATIVE (NEGATIVE) 12/29/17 00:45 Ur Barbiturates Screen NEGATIVE (NEGATIVE) 12/29/17 00:45 Ur Tricyclics Screen NEGATIVE (NEGATIVE) 12/29/17 00:45 Ur Phencyclidine Scrn NEGATIVE (NEGATIVE) 12/29/17 00:45 Amphetamines Screen NEGATIVE (NEGATIVE) 12/29/17 00:45 U Methamphetamines Scrn NEGATIVE (NEGATIVE) 12/29/17 00:45 U Benzodiazepines Scrn NEGATIVE (NEGATIVE) 12/29/17 00:45 U Cocaine Metab Screen NEGATIVE (NEGATIVE) 12/29/17 00:45 U Cannabinoids Screen NEGATIVE (NEGATIVE) 12/29/17 00:45 - Physical Exam Vitals and I&O: Vital Signs Temp 98.4 F 12/31/17 04:00 Pulse 72 12/31/17 08:50 Resp 16 12/31/17 09:55 BP 135/69 12/31/17 08:50 Pulse Ox 96 12/31/17 04:00 Intake & Output 12/30/17 12/31/17 12/31/17 18:59 06:59 18:59 Intake Total 100 1000 Balance 100 1000 Weight (lbs) 105.347 kg 105.347 kg Intake: Intake, IV Amount 100 Cefepime 2 gm In Sodium 100 Chloride 0.9% 100 ml @ 100 mls/hr IV Q24H [facility] Rx #:[id number] Oral 1000 Other: # Voids 3 # Bowel Movements 2 Stool Characteristics Hard Hard Hard Weight Source Bedscale Bedscale Active Medications: Current Medications Acetaminophen (Tylenol) 650 mg PO Q4H PRN PRN Reason: pain Stop: 02/27/18 09:29 Al Hydrox/Mg Hydrox/Simethicone (Maalox) 15 ml PO Q4H PRN PRN Reason: Constipation Stop: 02/27/18 09:29 Amlodipine Besylate (Norvasc) 5 mg PO DAILY DES Stop: 02/27/18 09:59 Last Admin: 12/31/17 08:49 Dose: 5 mg Bisacodyl (Dulcolax 10 Mg Supp) 10 mg RC DAILY PRN PRN Reason: Constipation Stop: 02/27/18 09:29 Cyanocobalamin (Vitamin B12) 1,000 mcg PO DAILY DES Stop: 02/27/18 09:59 Last Admin: 12/31/17 08:49 Dose: 1,000 mcg Docusate Sodium (Colace) 100 mg PO BID DES Stop: 02/27/18 09:59 Last Admin: 12/31/17 08:50 Dose: 100 mg Enoxaparin Sodium (Lovenox) 30 mg SUBQ DAILY [facility] Stop: 02/27/18 09:59 Last Admin: 12/31/17 08:49 Dose: 30 mg Ferrous Sulfate (Iron) 325 mg PO BID DES Stop: 02/27/18 09:59 Last Admin: 12/31/17 08:50 Dose: 325 mg Levofloxacin (Levaquin Pb) 250 mg in 50 mls @ 50 mls/hr IV Q24HR [facility] Stop: 02/27/18 13:59 Last Admin: 12/30/17 14:00 Dose: 50 mls/hr Cefepime HCl 2 gm/ Sodium (Chloride) 100 mls @ 100 mls/hr IV Q24H [facility] Stop: 02/27/18 10:59 Last Admin: 12/31/17 10:15 Dose: 100 mls/hr Insulin Aspart (Novolog Insulin Sliding Scale) 0 units SUBQ ACHS [facility]; Protocol Stop: 02/27/18 11:29 Last Admin: 12/31/17 08:12 Dose: 2 units Insulin Detemir (Levemir Insulin) 20 units SUBQ QPM [facility]; Protocol Stop: 02/27/18 16:59 Last Admin: 12/30/17 17:45 Dose: 20 units Insulin Detemir (Levemir Insulin) 5 units SUBQ QAM [facility]; Protocol Stop: 02/28/18 08:59 Last Admin: 12/31/17 08:50 Dose: Not Given Lactobacillus Rhamnosus (Culturelle 15b) 1 each PO DAILY [facility] Stop: 03/01/18 08:59 Last Admin: 12/31/17 08:50 Dose: Not Given Lactulose (Cephulac) 10 gm PO BID [facility] Stop: 02/27/18 16:59 Last Admin: 12/31/17 08:50 Dose: Not Given Magnesium Hydroxide (Milk Of Magnesia) 30 ml PO Q6H PRN PRN Reason: Constipation Stop: 02/27/18 09:29 Meclizine HCl (Antivert) 25 mg PO TID [facility] Stop: 02/27/18 09:59 Last Admin: 12/31/17 08:49 Dose: 25 mg Metoprolol Tartrate (Lopressor) 50 mg PO Q12HR [facility] Stop: 02/27/18 09:59 Last Admin: 12/31/17 08:50 Dose: 50 mg Miscellaneous (Clinical Monitoring) 1 ea MC PRN PRN PRN Reason: RX MONITORING Stop: 02/27/18 08:32 Miscellaneous (Probiotic Screen) 1 ea MC PRN PRN PRN Reason: PROTOCOL Stop: 03/01/18 08:44 Nitroglycerin (Nitrostat) 0.4 mg SL Q5M PRN PRN Reason: Chest Pain Stop: 02/27/18 09:59 Ondansetron HCl (Zofran Odt) 4 mg PO Q8H PRN PRN Reason: Nausea Stop: 02/27/18 09:29 Ondansetron HCl (Zofran) 4 mg IV Q8H PRN PRN Reason: Nausea / Vomiting Stop: 02/27/18 09:34 Psyllium Hydrophilic Mucilloid (Metamucil) 1 pkt PO DAILY [facility] Stop: 02/27/18 09:59 Last Admin: 12/31/17 08:50 Dose: Not Given Sodium Phosphate (Fleet Enema) 135 ml RC DAILY PRN PRN Reason: Constipation Stop: 02/27/18 09:29 General: No acute distress HEENT: Atraumatic Neck: Supple Cardiovascular: Regular rate Assessment/Plan - Problem List Patient Problems: All Active Problems Diabetes (Acute) E11.9 HTN (hypertension) (Acute) I10 Nausea (Acute) R11.0 UTI (urinary tract infection) (Acute) Vomiting (Acute) R11.10 - Plan Plan: antibiotics monitor vials diet labs
[2017-12-31] MEDS: Levofloxacin 250 mg/50 mL Premix Bag IV SCH (13:12)
--- NOTE | 2018-01-01 00:02 | Infectious Disease Prog Note ---
Infectious Disease Subjective - Review of Systems Service Date: 12/31/17 Subjective: doing well. no n/v. Infectious Disease Objective - Results Result Diagrams: 12/31/17 05:05 12/31/17 05:05 Recent Labs: Laboratory Last Values WBC 8.9 Th/cmm (4.8-10.8) 12/31/17 05:05 RBC 3.69 Mil/cmm (3.80-5.20) L 12/31/17 05:05 Hgb 9.8 gm/dL (12-16) L 12/31/17 05:05 Hct 29.4 % (41.0-60) L 12/31/17 05:05 MCV 79.7 fl (81-100) L 12/31/17 05:05 MCH 26.6 pg (27.0-31.0) L 12/31/17 05:05 MCHC Differential 33.4 pg (28.0-36.0) 12/31/17 05:05 RDW 20.9 % (11.5-20.0) H 12/31/17 05:05 Plt Count 410 Th/cmm (150-400) H 12/31/17 05:05 MPV 6.7 fl 12/31/17 05:05 Neutrophils % 61.4 % (40.0-80.0) 12/31/17 05:05 Lymphocytes % 27.7 % (20.0-50.0) 12/31/17 05:05 Monocytes % 5.3 % (2.0-10.0) 12/31/17 05:05 Eosinophils % 4.6 % (0.0-5.0) 12/31/17 05:05 Basophils % 1.0 % (0.0-2.0) 12/31/17 05:05 Sodium 142 mEq/L (136-145) 12/31/17 05:05 Potassium 3.8 mEq/L (3.5-5.1) 12/31/17 05:05 Chloride 105 mEq/L (98-107) 12/31/17 05:05 Carbon Dioxide 29.7 mEq/L (21.0-31.0) 12/31/17 05:05 Anion Gap 11.1 (7.0-16.0) 12/31/17 05:05 BUN 26 mg/dL (7-25) H 12/31/17 05:05 Creatinine 1.7 mg/dL (0.6-1.2) H 12/31/17 05:05 Est GFR ( Amer) 38.4 ml/min (>90) 12/31/17 05:05 Est GFR (Non-Af Amer) 31.8 ml/min 12/31/17 05:05 BUN/Creatinine Ratio 15.3 12/31/17 05:05 Glucose 116 mg/dL (70-105) H 12/31/17 05:05 POC Glucose 179 MG/DL (70 - 105) H 12/31/17 15:59 Hemoglobin A1c % 8.2 % (4.0-6.0) H 12/28/17 20:35 Calcium 9.5 mg/dL (8.6-10.3) 12/31/17 05:05 Phosphorus 4.0 mg/dL (2.5-5.0) 12/28/17 20:35 Magnesium 2.3 mg/dL (1.9-2.7) 12/28/17 20:35 Total Bilirubin 0.5 mg/dL (0.3-1.0) 12/28/17 20:35 AST 10 U/L (13-39) L 12/28/17 20:35 ALT 7 U/L (7-52) 12/28/17 20:35 Alkaline Phosphatase 82 U/L (34-104) 12/28/17 20:35 Total Protein 6.3 gm/dL (6.0-8.3) 12/28/17 20:35 Albumin 3.2 gm/dL (3.7-5.3) L 12/28/17 20:35 Globulin 3.1 gm/dL 12/28/17 20:35 Albumin/Globulin Ratio 1.0 (1.0-1.8) 12/28/17 20:35 Urine Source CATH 12/29/17 00:45 Urine Color YELLOW 12/29/17 00:45 Urine Clarity CLOUDY (CLEAR) H 12/29/17 00:45 Urine pH 6.0 (4.6 - 8.0) 12/29/17 00:45 Ur Specific [place] 1.010 (1.005-1.030) 12/29/17 00:45 Urine Protein 30 mg/dL (NEGATIVE) H 12/29/17 00:45 Urine Glucose (UA) NEGATIVE mg/dL (NEGATIVE) 12/29/17 00:45 Urine Ketones NEGATIVE mg/dL (NEGATIVE) 12/29/17 00:45 Urine Blood NEGATIVE (NEGATIVE) 12/29/17 00:45 Urine Nitrate NEGATIVE (NEGATIVE) 12/29/17 00:45 Urine Bilirubin NEGATIVE (NEGATIVE) 12/29/17 00:45 Urine Urobilinogen 0.2 E.U./dL (0.2 - 1.0) 12/29/17 00:45 Ur Leukocyte Esterase MODERATE (NEGATIVE) H 12/29/17 00:45 Urine RBC 0-2 /hpf (0-5) 12/29/17 00:45 Urine WBC 25-50 /hpf (0-5) H 12/29/17 00:45 Ur Epithelial Cells FEW /lpf (FEW) 12/29/17 00:45 Urine Bacteria 2+ /hpf (NONE SEEN) H 12/29/17 00:45 Stool Occult Blood NEGATIVE (NEGATIVE) 12/29/17 00:45 Urine Opiates Screen NEGATIVE (NEGATIVE) 12/29/17 00:45 Urine Methadone Screen NEGATIVE (NEGATIVE) 12/29/17 00:45 Ur Barbiturates Screen NEGATIVE (NEGATIVE) 12/29/17 00:45 Ur Tricyclics Screen NEGATIVE (NEGATIVE) 12/29/17 00:45 Ur Phencyclidine Scrn NEGATIVE (NEGATIVE) 18 00:45 Amphetamines Screen NEGATIVE (NEGATIVE) 12/29/17 00:45 U Methamphetamines Scrn NEGATIVE (NEGATIVE) 12/29/17 00:45 U Benzodiazepines Scrn NEGATIVE (NEGATIVE) 12/29/17 00:45 U Cocaine Metab Screen NEGATIVE (NEGATIVE) 12/29/17 00:45 U Cannabinoids Screen NEGATIVE (NEGATIVE) 12/29/17 00:45 - Physical Exam Vitals and I&O: Vital Signs Temp 98.7 F 12/31/17 20:38 Pulse 84 12/31/17 20:38 Resp 20 12/31/17 20:38 BP 137/77 12/31/17 20:38 Pulse Ox 97 12/31/17 20:38 Intake & Output 12/31/17 12/31/17 01/01/18 06:59 18:59 06:59 Intake Total 1000 900 200 Output Total 3 Balance 1000 897 200 Weight (lbs) 105.347 kg 105.233 kg 105.233 kg Intake: Intake, IV Amount 150 Cefepime 2 gm In Sodium 100 Chloride 0.9% 100 ml @ 100 mls/hr IV Q24H [facility] Rx #:[id number] Levofloxacin 250mg/50mL 50 250 mg In 50 ml @ 50 mls/ hr IV Q24HR [facility] Rx#: [id number] Oral 1000 750 200 Output: Urine 3 Other: # Voids 3 # Bowel Movements 2 2 Stool Characteristics Hard Hard Soft Weight Source Bedscale Bedscale Estimated Active Medications: Current Medications Acetaminophen (Tylenol) 650 mg PO Q4H PRN PRN Reason: pain Stop: 02/27/18 09:29 Al Hydrox/Mg Hydrox/Simethicone (Maalox) 15 ml PO Q4H PRN PRN Reason: Constipation Stop: 02/27/18 09:29 Amlodipine Besylate (Norvasc) 5 mg PO DAILY [facility] Stop: 02/27/18 09:59 Last Admin: 12/31/17 08:49 Dose: 5 mg Bisacodyl (Dulcolax 10 Mg Supp) 10 mg RC DAILY PRN PRN Reason: Constipation Stop: 02/27/18 09:29 Cyanocobalamin (Vitamin B12) 1,000 mcg PO DAILY [facility] Stop: 02/27/18 09:59 Last Admin: 12/31/17 08:49 Dose: 1,000 mcg Docusate Sodium (Colace) 100 mg PO BID [facility] Stop: 02/27/18 09:59 Last Admin: 12/31/17 16:17 Dose: 100 mg Enoxaparin Sodium (Lovenox) 30 mg SUBQ DAILY [facility] Stop: 02/27/18 09:59 Last Admin: 12/31/17 08:49 Dose: 30 mg Ferrous Sulfate (Iron) 325 mg PO BID [facility] Stop: 02/27/18 09:59 Last Admin: 12/31/17 16:17 Dose: 325 mg Levofloxacin (Levaquin Pb) 250 mg in 50 mls @ 50 mls/hr IV Q24HR [facility] Stop: 02/27/18 13:59 Last Infusion: 12/31/17 14:12 Dose: Infused Cefepime HCl 2 gm/ Sodium (Chloride) 100 mls @ 100 mls/hr IV Q24H [facility] Stop: 02/27/18 10:59 Last Infusion: 12/31/17 11:15 Dose: Infused Insulin Aspart (Novolog Insulin Sliding Scale) 0 units SUBQ ACHS [facility]; Protocol Stop: 02/27/18 11:29 Last Admin: 12/31/17 21:41 Dose: 4 units Insulin Detemir (Levemir Insulin) 20 units SUBQ QPM [facility]; Protocol Stop: 02/27/18 16:59 Last Admin: 12/31/17 17:34 Dose: 20 units Insulin Detemir (Levemir Insulin) 5 units SUBQ QAM [facility]; Protocol Stop: 02/28/18 08:59 Last Admin: 12/31/17 08:50 Dose: Not Given Lactobacillus Rhamnosus (Culturelle 15b) 1 each PO DAILY [facility] Stop: 03/01/18 08:59 Last Admin: 12/31/17 08:50 Dose: Not Given Lactulose (Cephulac) 10 gm PO BID [facility] Stop: 02/27/18 16:59 Last Admin: 12/31/17 17:06 Dose: Not Given Magnesium Hydroxide (Milk Of Magnesia) 30 ml PO Q6H PRN PRN Reason: Constipation Stop: 02/27/18 09:29 Meclizine HCl (Antivert) 25 mg PO TID [facility] Stop: 02/27/18 09:59 Last Admin: 12/31/17 20:24 Dose: 25 mg Metoprolol Tartrate (Lopressor) 50 mg PO Q12HR [facility] Stop: 02/27/18 09:59 Last Admin: 12/31/17 20:24 Dose: 50 mg Miscellaneous (Clinical Monitoring) 1 ea PRN PRN PRN Reason: RX MONITORING Stop: 02/27/18 08:32 Miscellaneous (Probiotic Screen) 1 ea PRN PRN PRN Reason: PROTOCOL Stop: 03/01/18 08:44 Nitroglycerin (Nitrostat) 0.4 mg SL Q5M PRN PRN Reason: Chest Pain Stop: 02/27/18 09:59 Ondansetron HCl (Zofran Odt) 4 mg PO Q8H PRN PRN Reason: Nausea Stop: 02/27/18 09:29 Ondansetron HCl (Zofran) 4 mg IV Q8H PRN PRN Reason: Nausea / Vomiting Stop: 02/27/18 09:34 Psyllium Hydrophilic Mucilloid (Metamucil) 1 pkt PO DAILY [facility] Stop: 02/27/18 09:59 Last Admin: 12/31/17 08:50 Dose: Not Given Sodium Phosphate (Fleet Enema) 135 ml RC DAILY PRN PRN Reason: Constipation Stop: 02/27/18 09:29 General: no acute distress, well developed, well nourished HEENT: atraumatic, normocephalic, PERRLA, EOMI Neck: supple, no thyromegaly Cardiovascular: S1S2, regular Lungs: clear to auscultation bilaterally, clear to percussion Abdomen: soft, no tender, no distended, no mass Extremities: no cyanosis, no clubbing, no edema Neurological: awake, alert, oriented Skin: intact Infectious Disease Assmt/Plan - Problem List Patient Problems: All Active Problems Diabetes (Acute) E11.9 HTN (hypertension) (Acute) I10 Nausea (Acute) R11.0 UTI (urinary tract infection) (Acute) Vomiting (Acute) R11.10 - Assessment Assessment: 1. UTI. 2. Leukocytosis improved. 3. diabetes mellitus type 2. 4. hypertension. 5. Iron deficiency anemia. 6. osteoarthritis.. - Plan Plan: Will change antibiotics to cipro 250mg po bid for 5 more days. Nutritional Asmnt/Malnutr-PDOC - Dietary Evaluation Malnutrition Findings (Please click <Entered> for more info): Nutritional Asmnt/Malnutrition Start: 12/31/17 13: 10 Text: Status: Complete Freq: Protocol: Document 12/31/17 13:10 CARRINGTON (Rec: 12/31/17 13:26 CARRINGTON MAJOR- [id number]) Nutritional Asmnt/Malnutrition Patient General Information Nutritional Screening High Risk Diagnosis Urinary tract infection Pertinent Medical Hx/Surgical Hx Diabetes, HTN, iron deficiency anemia, osteoarthritis Subjective Information Glucose >180 on admission. In bed at time of RD visit. Tolerating current diet order with adequate intake. Current Diet Order/ Nutrition Support Regular Patient / S.O Not Indicated Pertinent Medications maalox, dulcolax, Vitamin B12, colace, iron, Novolog, Levemir, Lactulose, MOM, zofran, metamucil, fleet enema Pertinent Labs (12/31) BUN 26, Cr 1.7, Glucose 116-258 Nutritional Hx/Data Height 1.7 m Height (Calculated Centimeters) 170.2 Current Weight (lbs) 105.233 kg Weight (Calculated Kilograms) 105.2 Weight (Calculated Grams) 905096.4 [place] Body Weight 135 % [place] Body Weight 171 Body Mass Index (BMI) 36.3 Recent Weight Change No Weight Status Morbidly Obese GI Symptoms GI Symptoms None Last BM 12/31 x 2 Difficult in: None Food Allergies No Cultural/Ethnic/Confucianism Belief None indicated Usual diet at home unknown Skin Integrity/Comment: Gui Child, scar, left lateral leg surgical incision Current %PO Good (75-100%) Estimated Nutritional Goals BEE in Kcals: Adj wt of IBW Calories/Kcals/Kg (Using Adj BW 72.3kg) 25-30 kcal/kg Kcals Calculated ~7776-3073 kcal/day Protein: Adj wt of IBW Protein g/k-1.2 gm/kg Protein Calculated ~70-85 gm/day Fluid: ml ~6609-4141 ml/day (1 ml/kcal) Nutritional Problem 1. Problem Problem Altered nutrition related lab values related to Etiology hyperglycemia aeb Signs/Symptoms: Glucose 116-258, HGA1C 8.2 Intervention/Recommendation Comments 1. Consider modifying diet to 60 gm CCHO 2. MD to modify insulin regimen for optimal glycemic control. 3. F/U MR 01/03-8 Expected Outcomes/Goals Expected Outcomes/Goals oral intake >75% of meals, weight stable or trend toward ideal body weight, nutrition related labs WNL
[2018-01-01] MEDS: INSULIN ASPART SLIDING SCALE 100 UNITS/ML UNIT SUBQ SCH ×3 (08:10→16:46)
[2018-01-01] MEDS: Insulin Detemir 100 units/mL 10mL Vial SUBQ SCH ×2 (08:11→16:46)
[2018-01-01] MEDS: Lactobacillus Rhamnosus GG 15 Billion CFU CAP.SPRINK PO SCH (08:50)
[2018-01-01] MEDS: Enoxaparin 30 mg/0.3 mL 0.3mL Syr SUBQ SCH (08:50)
[2018-01-01] MEDS: Lactulose 10 Gm/15 mL 30mL UDC PO SCH (08:52)
[2018-01-01] MEDS: Ferrous Sulfate 325 MG TAB PO SCH ×2 (08:52→16:06)
[2018-01-01] MEDS: Cefepime 2 gm in 0.9% NS 100 mL IV SCH (11:11)
--- NOTE | 2018-01-01 12:59 | Infectious Disease Prog Note ---
Infectious Disease Subjective - Review of Systems Service Date: 01/01/18 Subjective: doing well. no n/v. Infectious Disease Objective - Results Result Diagrams: 12/31/17 05:05 12/31/17 05:05 Recent Labs: Laboratory Last Values WBC 8.9 Th/cmm (4.8-10.8) 12/31/17 05:05 RBC 3.69 Mil/cmm (3.80-5.20) L 12/31/17 05:05 Hgb 9.8 gm/dL (12-16) L 12/31/17 05:05 Hct 29.4 % (41.0-60) L 12/31/17 05:05 MCV 79.7 fl (81-100) L 12/31/17 05:05 MCH 26.6 pg (27.0-31.0) L 12/31/17 05:05 MCHC Differential 33.4 pg (28.0-36.0) 12/31/17 05:05 RDW 20.9 % (11.5-20.0) H 12/31/17 05:05 Plt Count 410 Th/cmm (150-400) H 12/31/17 05:05 MPV 6.7 fl 12/31/17 05:05 Neutrophils % 61.4 % (40.0-80.0) 12/31/17 05:05 Lymphocytes % 27.7 % (20.0-50.0) 12/31/17 05:05 Monocytes % 5.3 % (2.0-10.0) 12/31/17 05:05 Eosinophils % 4.6 % (0.0-5.0) 12/31/17 05:05 Basophils % 1.0 % (0.0-2.0) 12/31/17 05:05 Sodium 142 mEq/L (136-145) 12/31/17 05:05 Potassium 3.8 mEq/L (3.5-5.1) 12/31/17 05:05 Chloride 105 mEq/L (98-107) 12/31/17 05:05 Carbon Dioxide 29.7 mEq/L (21.0-31.0) 12/31/17 05:05 Anion Gap 11.1 (7.0-16.0) 12/31/17 05:05 BUN 26 mg/dL (7-25) H 12/31/17 05:05 Creatinine 1.7 mg/dL (0.6-1.2) H 12/31/17 05:05 Est GFR ( Amer) 38.4 ml/min (>90) 12/31/17 05:05 Est GFR (Non-Af Amer) 31.8 ml/min 12/31/17 05:05 BUN/Creatinine Ratio 15.3 12/31/17 05:05 Glucose 116 mg/dL (70-105) H 12/31/17 05:05 POC Glucose 263 MG/DL (70 - 105) H 01/01/18 11:10 Hemoglobin A1c % 8.2 % (4.0-6.0) H 12/28/17 20:35 Calcium 9.5 mg/dL (8.6-10.3) 12/31/17 05:05 Phosphorus 4.0 mg/dL (2.5-5.0) 12/28/17 20:35 Magnesium 2.3 mg/dL (1.9-2.7) 12/28/17 20:35 Total Bilirubin 0.5 mg/dL (0.3-1.0) 12/28/17 20:35 AST 10 U/L (13-39) L 12/28/17 20:35 ALT 7 U/L (7-52) 12/28/17 20:35 Alkaline Phosphatase 82 U/L (34-104) 12/28/17 20:35 Total Protein 6.3 gm/dL (6.0-8.3) 12/28/17 20:35 Albumin 3.2 gm/dL (3.7-5.3) L 12/28/17 20:35 Globulin 3.1 gm/dL 12/28/17 20:35 Albumin/Globulin Ratio 1.0 (1.0-1.8) 12/28/17 20:35 Urine Source CATH 12/29/17 00:45 Urine Color YELLOW 12/29/17 00:45 Urine Clarity CLOUDY (CLEAR) H 12/29/17 00:45 Urine pH 6.0 (4.6 - 8.0) 12/29/17 00:45 Ur Specific [place] 1.010 (1.005-1.030) 12/29/17 00:45 Urine Protein 30 mg/dL (NEGATIVE) H 12/29/17 00:45 Urine Glucose (UA) NEGATIVE mg/dL (NEGATIVE) 12/29/17 00:45 Urine Ketones NEGATIVE mg/dL (NEGATIVE) 12/29/17 00:45 Urine Blood NEGATIVE (NEGATIVE) 12/29/17 00:45 Urine Nitrate NEGATIVE (NEGATIVE) 12/29/17 00:45 Urine Bilirubin NEGATIVE (NEGATIVE) 12/29/17 00:45 Urine Urobilinogen 0.2 E.U./dL (0.2 - 1.0) 12/29/17 00:45 Ur Leukocyte Esterase MODERATE (NEGATIVE) H 12/29/17 00:45 Urine RBC 0-2 /hpf (0-5) 12/29/17 00:45 Urine WBC 25-50 /hpf (0-5) H 12/29/17 00:45 Ur Epithelial Cells FEW /lpf (FEW) 12/29/17 00:45 Urine Bacteria 2+ /hpf (NONE SEEN) H 12/29/17 00:45 Stool Occult Blood NEGATIVE (NEGATIVE) 12/29/17 00:45 Urine Opiates Screen NEGATIVE (NEGATIVE) 12/29/17 00:45 Urine Methadone Screen NEGATIVE (NEGATIVE) 12/29/17 00:45 Ur Barbiturates Screen NEGATIVE (NEGATIVE) 12/29/17 00:45 Ur Tricyclics Screen NEGATIVE (NEGATIVE) 12/29/17 00:45 Ur Phencyclidine Scrn NEGATIVE (NEGATIVE) 18 00:45 Amphetamines Screen NEGATIVE (NEGATIVE) 12/29/17 00:45 U Methamphetamines Scrn NEGATIVE (NEGATIVE) 12/29/17 00:45 U Benzodiazepines Scrn NEGATIVE (NEGATIVE) 12/29/17 00:45 U Cocaine Metab Screen NEGATIVE (NEGATIVE) 12/29/17 00:45 U Cannabinoids Screen NEGATIVE (NEGATIVE) 12/29/17 00:45 - Physical Exam Vitals and I&O: Vital Signs Temp 96.3 F 01/01/18 11:37 Pulse 77 01/01/18 11:37 Resp 18 01/01/18 11:37 BP 149/86 01/01/18 11:37 Pulse Ox 93 01/01/18 11:37 Intake & Output 12/31/17 01/01/18 01/01/18 18:59 06:59 18:59 Intake Total 900 680 Output Total 3 Balance 897 680 Weight (lbs) 105.233 kg 104.78 kg Intake: Intake, IV Amount 150 Cefepime 2 gm In Sodium 100 Chloride 0.9% 100 ml @ 100 mls/hr IV Q24H [facility] Rx #:[id number] Levofloxacin 250mg/50mL 50 250 mg In 50 ml @ 50 mls/ hr IV Q24HR [facility] Rx#: [id number] Oral 750 680 Output: Urine 3 Other: # Voids 2 # Bowel Movements 2 2 Stool Characteristics Hard Soft Hard Weight Source Bedscale Estimated Active Medications: Current Medications Acetaminophen (Tylenol) 650 mg PO Q4H PRN PRN Reason: pain Stop: 02/27/18 09:29 Al Hydrox/Mg Hydrox/Simethicone (Maalox) 15 ml PO Q4H PRN PRN Reason: Constipation Stop: 02/27/18 09:29 Amlodipine Besylate (Norvasc) 5 mg PO DAILY [facility] Stop: 02/27/18 09:59 Last Admin: 01/01/18 08:51 Dose: 5 mg Bisacodyl (Dulcolax 10 Mg Supp) 10 mg RC DAILY PRN PRN Reason: Constipation Stop: 02/27/18 09:29 Ciprofloxacin (Cipro) 250 mg PO BID [facility] Stop: 03/02/18 16:59 Cyanocobalamin (Vitamin B12) 1,000 mcg PO DAILY [facility] Stop: 02/27/18 09:59 Last Admin: 01/01/18 08:51 Dose: 1,000 mcg Docusate Sodium (Colace) 100 mg PO BID [facility] Stop: 02/27/18 09:59 Last Admin: 01/01/18 08:51 Dose: 100 mg Enoxaparin Sodium (Lovenox) 30 mg SUBQ DAILY [facility] Stop: 02/27/18 09:59 Last Admin: 01/01/18 08:50 Dose: 30 mg Ferrous Sulfate (Iron) 325 mg PO BID [facility] Stop: 02/27/18 09:59 Last Admin: 01/01/18 08:52 Dose: 325 mg Levofloxacin (Levaquin Pb) 250 mg in 50 mls @ 50 mls/hr IV Q24HR [facility] Stop: 02/27/18 13:59 Last Infusion: 12/31/17 14:12 Dose: Infused Insulin Aspart (Novolog Insulin Sliding Scale) 0 units SUBQ ACHS [facility]; Protocol Stop: 02/27/18 11:29 Last Admin: 01/01/18 11:45 Dose: 6 units Insulin Detemir (Levemir Insulin) 20 units SUBQ QPM [facility]; Protocol Stop: 02/27/18 16:59 Last Admin: 12/31/17 17:34 Dose: 20 units Insulin Detemir (Levemir Insulin) 5 units SUBQ QAM DES; Protocol Stop: 02/28/18 08:59 Last Admin: 01/01/18 08:11 Dose: 5 units Lactobacillus Rhamnosus (Culturelle 15b) 1 each PO DAILY [facility] Stop: 03/01/18 08:59 Last Admin: 01/01/18 08:50 Dose: 1 each Lactulose (Cephulac) 10 gm PO BID [facility] Stop: 02/27/18 16:59 Last Admin: 01/01/18 08:52 Dose: Not Given Magnesium Hydroxide (Milk Of Magnesia) 30 ml PO Q6H PRN PRN Reason: Constipation Stop: 02/27/18 09:29 Meclizine HCl (Antivert) 25 mg PO TID [facility] Stop: 02/27/18 09:59 Last Admin: 01/01/18 08:52 Dose: 25 mg Metoprolol Tartrate (Lopressor) 50 mg PO Q12HR [facility] Stop: 02/27/18 09:59 Last Admin: 01/01/18 08:51 Dose: 50 mg Miscellaneous (Clinical Monitoring) 1 ea MC PRN PRN PRN Reason: RX MONITORING Stop: 02/27/18 08:32 Miscellaneous (Probiotic Screen) 1 ea PRN PRN PRN Reason: PROTOCOL Stop: 03/01/18 08:44 Nitroglycerin (Nitrostat) 0.4 mg SL Q5M PRN PRN Reason: Chest Pain Stop: 02/27/18 09:59 Ondansetron HCl (Zofran Odt) 4 mg PO Q8H PRN PRN Reason: Nausea Stop: 02/27/18 09:29 Ondansetron HCl (Zofran) 4 mg IV Q8H PRN PRN Reason: Nausea / Vomiting Stop: 02/27/18 09:34 Psyllium Hydrophilic Mucilloid (Metamucil) 1 pkt PO DAILY [facility] Stop: 02/27/18 09:59 Last Admin: 01/01/18 08:52 Dose: Not Given Sodium Phosphate (Fleet Enema) 135 ml RC DAILY PRN PRN Reason: Constipation Stop: 02/27/18 09:29 General: no acute distress, well developed, well nourished HEENT: atraumatic, normocephalic, PERRLA Neck: supple, thyromegaly Cardiovascular: S1S2, regular Lungs: clear to auscultation bilaterally, clear to percussion Abdomen: soft, no tender, no distended Extremities: no cyanosis, no clubbing, no edema Neurological: awake, alert, oriented, CN 2-12 intact Skin: intact Infectious Disease Assmt/Plan - Problem List Patient Problems: All Active Problems Diabetes (Acute) E11.9 HTN (hypertension) (Acute) I10 Nausea (Acute) R11.0 UTI (urinary tract infection) (Acute) Vomiting (Acute) R11.10 - Assessment Assessment: 1. UTI. 2. Leukocytosis improved. 3. diabetes mellitus type 2. 4. hypertension. 5. Iron deficiency anemia. 6. osteoarthritis.. - Plan Plan: Will change antibiotics to cipro 250mg po bid for 5 more days. Nutritional Asmnt/Malnutr-PDOC - Dietary Evaluation Malnutrition Findings (Please click <Entered> for more info): Nutritional Asmnt/Malnutrition Start: 12/31/17 13: 10 Text: Status: Complete Freq: Protocol: Document 12/31/17 13:10 MMULDOUGIE (Rec: 12/31/17 13:26 MMELIO MAJOR- [email or web address]) Nutritional Asmnt/Malnutrition Patient General Information Nutritional Screening High Risk Diagnosis Urinary tract infection Pertinent Medical Hx/Surgical Hx Diabetes, HTN, iron deficiency anemia, osteoarthritis Subjective Information Glucose >180 on admission. In bed at time of RD visit. Tolerating current diet order with adequate intake. Current Diet Order/ Nutrition Support Regular Patient / S.O Not Indicated Pertinent Medications maalox, dulcolax, Vitamin B12, colace, iron, Novolog, Levemir, Lactulose, MOM, zofran, metamucil, fleet enema Pertinent Labs (12/31) BUN 26, Cr 1.7, Glucose 116-258 Nutritional Hx/Data Height 1.7 m Height (Calculated Centimeters) 170.2 Current Weight (lbs) 105.233 kg Weight (Calculated Kilograms) 105.2 Weight (Calculated Grams) 589902.4 [place] Body Weight 135 % [place] Body Weight 171 Body Mass Index (BMI) 36.3 Recent Weight Change No Weight Status Morbidly Obese GI Symptoms GI Symptoms None Last BM 12/31 x 2 Difficult in: None Food Allergies No Cultural/Ethnic/Episcopalian Belief None indicated Usual diet at home unknown Skin Integrity/Comment: Gui Child, scar, left lateral leg surgical incision Current %PO Good (75-100%) Estimated Nutritional Goals BEE in Kcals: Adj wt of IBW Calories/Kcals/Kg (Using Adj BW 72.3kg) 25-30 kcal/kg Kcals Calculated ~2583-7986 kcal/day Protein: Adj wt of IBW Protein g/k-1.2 gm/kg Protein Calculated ~70-85 gm/day Fluid: ml ~0915-1083 ml/day (1 ml/kcal) Nutritional Problem 1. Problem Problem Altered nutrition related lab values related to Etiology hyperglycemia aeb Signs/Symptoms: Glucose 116-258, HGA1C 8.2 Intervention/Recommendation Comments 1. Consider modifying diet to 60 gm CCHO 2. MD to modify insulin regimen for optimal glycemic control. 3. F/U MR 01/03-8 Expected Outcomes/Goals Expected Outcomes/Goals oral intake >75% of meals, weight stable or trend toward ideal body weight, nutrition related labs WNL
[2018-01-01] MEDS: Levofloxacin 250 mg/50 mL Premix Bag IV SCH (13:25)
--- NOTE | 2018-01-03 13:56 | Discharge Summary ---
DATE OF DISCHARGE: 01/01/2018 The patient is well known to me from [facility] where I am been taking care of the patient. Apparently, the patient was admitted because of nausea, vomiting, found to have urinary tract infection, sepsis, history of diabetes, history of hypertension. The patient was given IV antibiotics. ID, Dr. Jalil Avitia saw the patient. The patient gradually improved and the patient was in stable condition. On 01/01/2018, patient was discharged back to [facility] where I will be following the patient. CONDITION AT THE TIME OF DISCHARGE: Stable. Diet, activity, medication, please refer to the reconciliation. JOB# [id number]
== END 2018-01-01 17:40 | DRG 872 ==
LOC: ER 19:34 → MSI 12-29 06:45
PROVIDERS: ADMIT Internal Medicine; ATTEND Internal Medicine
DX: A41.9 Sepsis, unspecified organism (principal); N39.0 Urinary tract infection, site not specified; R65.10 Systemic inflammatory response syndrome (SIRS) of non-infectious origin without acute organ dysfunction; E11.9 Type 2 diabetes mellitus without complications; I10 Essential (primary) hypertension; M19.90 Unspecified osteoarthritis, unspecified site; N28.9 Disorder of kidney and ureter, unspecified; R11.2 Nausea with vomiting, unspecified; D50.9 Iron deficiency anemia, unspecified; Z79.4 Long term (current) use of insulin
CPT/HCPCS: 36415-UA; 80048-TC; 80053-TC; 80307; 81001-TC; 82270-TC; 82948-90; 83036-90; 83735-TC; 84100-TC; 85025-TC; 87046-90; 87086-90; 96375; J0692; J0744; J1650; J1815; J1956; J2405; Z7610

== ENCOUNTER 2018-01-22 13:06 | Inpatient (IN) | payer BC, MEDICARE ==
--- NOTE | 2018-01-22 13:28 | ED Physician Chart ---
ED Chief Complaint/HPI - Patient Information Date Seen:: 01/22/18 Time Seen:: 13:00 Chief Complaint:: intractable vomiting History of Present Illness:: 67 yr old female here for nv since she had her femur fx and maira she vomits at the side of food no diarhea no fever pt states had full w/u at [facility] Allergies:: Allergies Allergy/AdvReac Type Severity Reaction Status Date / Time Gandolinium related agent Allergy Uncoded 12/28/17 20:24 Vitals:: Vital Signs - 8 hr 01/22/18 13:15 Temp 97.7 F HR 65 RR 18 BP 121/75 O2 Sat % 97 ED Review of Systems - Review of Systems General/Constitutional: No fever Skin: No skin lesions Head: No headache Eyes: No loss of vision ENT: No earache Neck: No neck pain Cardio Vascular: No chest pain Pulmonary: No SOB GI: No nausea G/U: No dysuria 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 Is Septic Shock (SBP<90, OR Lactate>4 mmol\L) present?: No - <6hrs of presentation: Vital Signs: Vital Signs - 8 hr 01/22/18 13:15 Temp 97.7 F HR 65 RR 18 BP 121/75 O2 Sat % 97 ED Reassessment (Disposition) - Reassessment Reassessment Condition:: Unchanged - Diagnosis Diagnosis:: NV - Aftercare/Follow up Instructions Aftercare/Follow-Up Instructions:: Counseled pt regarding lab results/diagnosis & need follow up - Patient Disposition Discharge/Transfer:: Acute Care w/in this hosp Condition at Disposition:: Stable
[2018-01-22 13:46] LABS: % BASOPHILS 0.1 % (0.0-2.0); % LYMPHOCYTES 16.5 % (20.0-50.0); % MONOCYTES 2.6 % (2.0-10.0); % NEUTROPHILS 73.8 % (40.0-80.0); EOSINOPHILE ABSOLUTE 0.8 Th/cmm (0.1-0.4); HEMOGLOBIN 11.4 gm/dL (12-16); LYMPHOCYTE ABSOLUTE 1.8 Th/cmm (1.5-3.0); MEAN CELL VOLUME 81.6 fl (81-100); MEAN CORPUSCULAR HEMOGLOBIN 27.4 pg (27.0-31.0); MEAN CORPUSCULAR HGB CONC 33.5 pg (28.0-36.0); MEAN PLATELET VOLUME 7.1 fl; MONOCYTE ABSOLUTE 0.3 Th/cmm (0.3-1.0); NEUTROPHILE ABSOLUTE 8.3 Th/cmm (1.8-8.0); PLATELET COUNT 298 Th/cmm (150-400); RED BLOOD COUNT 4.16 Mil/cmm (3.80-5.20); WHITE BLOOD COUNT 11.2 Th/cmm (4.8-10.8)
[2018-01-22 14:21] LABS: ALB/GLOB RATIO 1.1 (1.0-1.8); ALBUMIN 3.3 gm/dL (3.7-5.3); ALKALINE PHOSPHATASE 68 U/L (34-104); AMYLASE SERUM 12 U/L (29-103); ANION GAP 15.5 (7.0-16.0); BILIRUBIN,TOTAL 0.6 mg/dL (0.3-1.0); BUN - UREA NITROGEN 12 mg/dL (7-25); CALCIUM SERUM 9.6 mg/dL (8.6-10.3); CARBON DIOXIDE 24.3 mEq/L (21.0-31.0); CHLORIDE 100 mEq/L (98-107); CREATININE - SERUM 1.1 mg/dL (0.6-1.2); GFR AFRICAN-AMERICAN > 60.0 ml/min (>90); GFR NON AFRICAN-AMERICAN 52.5 ml/min; GLUCOSE 164 mg/dL (70-105); LIPASE 12 U/L (11-82); POTASSIUM SERUM 3.8 mEq/L (3.5-5.1); SGOT 10 U/L (13-39); SGPT/ALT 6 U/L (7-52); SODIUM SERUM 136 mEq/L (136-145); TOTAL PROTEIN,SERUM 6.3 gm/dL (6.0-8.3)
[2018-01-22 14:31] LABS: URINE SOURCE CLEAN C
[2018-01-22 14:33] LABS: URINE BILIRUBIN NEGATIVE (NEGATIVE); URINE BLOOD TRACE (NEGATIVE); URINE GLUCOSE (UA) NEGATIVE (NEGATIVE); URINE KETONE NEGATIVE (NEGATIVE); URINE LEUKOCYTE ESTERASE MODERATE (NEGATIVE); URINE MICROSCOPIC INDICATED? YES; URINE NITRATE NEGATIVE (NEGATIVE); URINE PROTEIN 30 mg/dL (NEGATIVE); URINE UROBILINOGEN 0.2 E.U./dL (0.2 - 1.0)
[2018-01-22 14:43] LABS: URINE CLARITY HAZY (CLEAR); URINE COLOR YELLOW
[2018-01-22 14:44] LABS: URINE EPITHELIAL CELLS MODERATE /lpf (FEW)
[2018-01-22 14:45] LABS: URINE BACTERIA 3+ /hpf (NONE SEEN)
--- NOTE | 2018-01-22 15:16 | Diagnostic Imaging Report ---
CT abdomen and pelvis without intravenous contrast Indication: Abdominal pain Comparison: None, Technique: Axial images were obtained from the lung bases to the bilateral proximal femurs without IV contrast. Coronal reconstructions were made. total DLP: [id number], [id number] FINDINGS: Hypoventilatory and atelectatic changes of the lung bases are noted. Assessment of the solid organs is limited due to lack of IV contrast. No evidence of focal hepatic lesions. The patient is status post cholecystectomy. No focal splenic lesions. There is severe pancreatic gland atrophy. No focal adrenal lesions. No evidence of renal stones. There is mild hydronephrosis and hydroureter. Distended urinary bladder noted. There is also distal fecal infarction. The patient is status post hysterectomy. Copious stool is seen throughout the colon gas-filled loops of bowel. There is mild bladder wall thickening and minimal inflammatory changes surround the urinary bladder wall. Degenerative changes of the spine and pelvis are noted. There is also 3 mm anterolisthesis L5/S1 likely due to severe facet arthropathy at this level. There may have been an old pars defect on the right side at this level. Few pockets of gas are seen in the left side anterior abdominal wall. IMPRESSION: Marked distal fecal impaction with mass effect upon the urinary bladder. Mild urinary bladder wall thickening with inflammatory changes. There is also mild bilateral hydronephrosis and hydroureter. Correlation should be made for urinary tract infection. Severe pancreatic gland atrophy Copious evidence of prior cholecystectomy. Degenerative changes. Few pockets of gas along left side anterior abdominal wall which may be due to medication injection.
[2018-01-22] MEDS ORDERED: Magnesium Citrate 1.75 GM/300 mL Bottle PO ONE (15:21)
[2018-01-22] MEDS ORDERED: Piperacillin Sodium/Tazobact 3.375 gm Vial IV ONE (15:42)
[2018-01-22] MEDS ORDERED: Sodium Chloride 0.9% 1,000 ML IV ONE (15:42)
[2018-01-22] MEDS: Sodium Chloride 0.9% 1,000 ML IV SCH (20:05)
[2018-01-22] MEDS: cefTRIAXone 1 GM in Sodium Chloride 0.9% 50 ML IV SCH (21:14)
[2018-01-22 22:04] VITALS: BP 150/57
[2018-01-23] MEDS: POLYETHYLENE GLYCOL 3350 17 GM PACK PO SCH (09:43)
[2018-01-23] MEDS ORDERED: Fleet Enema 135 mL RC PRN (10:37)
[2018-01-23] MEDS ORDERED: Maalox 30 mL Cup PO PRN (10:37)
[2018-01-23] MEDS ORDERED: Magnesium Hydroxide (MOM) 30 mL UDC PO PRN (10:37)
[2018-01-23] MEDS: INSULIN ASPART SLIDING SCALE 100 UNITS/ML UNIT SUBQ SCH ×3 (12:09→20:57)
--- NOTE | 2018-01-23 12:26 | History & Physical ---
ADMIT DATE: 01/22/2018 INFECTIOUS DISEASE CONSULTATION The history and physical was done on behalf of Dr. Reynolds. CHIEF COMPLAINT: Nausea, vomiting and generalized weakness. The patient also complained of burning of on urination. HISTORY OF PRESENT ILLNESS: The patient is a 67-year-old female with a past medical history of hypertension, diabetes mellitus type 2, coronary artery disease, anemia, osteopenia, ORIF left hip recently, unable to ambulate since her last ORIF or left hip in 08/2017, brought into the hospital for nausea, vomiting and similar sickness. The patient also complained of dysuria. A CT of abdomen and pelvis was performed and it showed fecal impaction as well as a urinary bladder wall thickening with inflammatory changes. Also bilateral hydronephrosis and hydroureter. Rocephin 1 gram was given in the ER and it was continued for suspected UTI also. GI consultation was also called. PAST MEDICAL HISTORY: Includes diabetes mellitus type 2, hypertension, iron deficient anemia, osteoarthritis, ORIF of left hip in 08/2017, bedridden status, coronary artery disease. ALLERGIES: Gadolinium related agents. MEDICATIONS: As per medication reconciliation sheet. It includes insulin, acetaminophen, Maalox, amlodipine, Dulcolax, vitamin B12, Colace, Lovenox, ferrous sulfate, Fleet Enema p.r.n., Levemir insulin, constulose, milk of magnesia, Lopressor, Nitro transdermal p.r.n., Zofran, psyllium husk. Rocephin 1 gram IV daily started here for UTI. FAMILY HISTORY: Noncontributory. SOCIAL HISTORY: The patient lives at nursing facility. No history of smoking, alcohol or drug use. FAMILY HISTORY: Noncontributory. REVIEW OF SYSTEMS: CONSTITUTIONAL: The patient has no fever, no chills. HEENT: No diplopia, no photophobia, no sore throat. RESPIRATORY: The patient has no cough, no shortness of breath. CARDIOVASCULAR: No chest pain or palpitation. GASTROINTESTINAL: The patient has some nausea and vomiting, which is improving. No abdominal pain. GENITOURINARY: The patient complained of dysuria, no foul smelling urine. No hematuria. NEUROLOGIC: No headache, no dizziness, no focal weakness. PHYSICAL EXAMINATION: VITAL SIGNS: Shows temperature is 97.6 degrees Fahrenheit, pulse 79, respiration 18, blood pressure 162/59, oxygen saturation 97%. GENERAL: The patient is comfortable lying in the bed, not in acute distress. HEENT: Head is normocephalic, atraumatic. Oral cavity moist, pink tongue. Eyes: No pallor, no icterus. PERRLA, EOMI. NECK: Supple, no JVD, no bruit. Trachea in midline. CHEST: Bilateral breath sounds. No crackles or wheezing. HEART: S1, S2 within normal limits. Regular rhythm. No murmur, no gallop. ABDOMEN: Soft, nontender, nondistended. Bowel sounds present. EXTREMITIES: No cyanosis, no clubbing, no edema. NEUROLOGICAL: Alert and awake. Speech is clear. Oriented x 3. LABORATORY DATA: Current lab shows WBC count is 11,200, hemoglobin 11.4, hematocrit 34, platelets are 298,000, neutrophils 94%. Sodium 136, potassium 3.8, chloride 100, bicarbonate is 24, BUN is 12, creatinine 1.1, glucose is 164. Urinalysis clear hazy urine with moderate leukoesterase, WBC 10-25, 3+ bacteria. CT scan of the abdomen and pelvis reported marked distal fecal impaction with mass effect upon the urinary bladder. Mild urinary bladder wall thickening with inflammatory changes. There is also mild bilateral hydronephrosis and hydroureter. Severe pancreatic gland atrophy. Copious evidence of prior cholecystectomy, DJD. the left side anterior abdominal wall, which may be due to medication injections. IMPRESSION: 1. Urinary tract infection complicated with bilateral hydronephrosis and hydroureter. 2. Leukocytosis due to fecal impaction as well as UTI. The patient has fourth episode of UTI in last 1 year, mainly after the surgery in August 2017. 3. Fecal impaction. 4. Diabetes mellitus type 2. 5. Hypertension. 6. ORIF of left hip. RECOMMENDATIONS AND PLAN: 1. GI consultation is called. 2. Complication of and UTI with hydronephrosis, most likely secondary to fecal impaction. If fecal impaction is resolved then we will repeat renal ultrasound as outpatient or inpatient and follow up on hydronephrosis. 3. Antibiotic gonsalez, continue Rocephin. The patient had equal SCD and Lovenox. JOB# [id number]
--- NOTE | 2018-01-23 13:13 | Consultation ---
DATE OF CONSULTATION: 01/23/2018 INPATIENT GASTROINTESTINAL CONSULTATION CONSULTING PHYSICIAN: Dr. Jalil Avitia. REASON FOR CONSULTATION: Fecal impaction, nausea and vomiting. HISTORY OF PRESENT ILLNESS: The patient is a 67-year-old female with past medical history significant for a femur fracture status post surgical repair in 08/2017, coronary artery disease, hypertension, type 2 diabetes and previous fecal impaction, who was admitted to the hospital with nausea and vomiting, found to have impaction on CT imaging. The patient notes that ever since she had a femur fracture and surgical repair in August of this year, she has been having issues with constipation. She believes the reason for this is that she is primarily bedbound and she has been in a rehab facility for 4 months. She normally takes magnesium citrate every day while she is at home, but she does not know if she has been receiving adequate laxatives at her rehab facility. She reports that she has had 2 fecal disimpaction by digital means in the recent few months with the most recent being yesterday while here in the Emergency Room. Since her disimpaction yesterday, she has been having bowel movements and she is feeling better. However, before that, she had nausea and vomiting which was due to her impaction. PAST MEDICAL HISTORY: Hypertension, type 2 diabetes, coronary artery disease, femur fracture. PAST SURGICAL HISTORY: Femur fracture repair in 08/2017, cholecystectomy in the past. FAMILY HISTORY: Noncontributory. SOCIAL HISTORY: The patient denies any smoking, drinking or illicit drug use. ALLERGIES: Reports an allergy to gadolinium. REVIEW OF SYSTEMS: A 12-point review of systems was performed with the patient and is negative other than the pertinent positives are mentioned in the history of present illness. CURRENT MEDICATIONS: Include magnesium citrate, ceftriaxone. PHYSICAL EXAMINATION: VITAL SIGNS: Blood pressure is 162/59, pulse 79 beats per minute, temperature 97.6, oxygenation 97%. GENERAL: The patient is lying in bed at 30 degrees, alert and oriented x 3. She appears in no apparent distress. HEAD, EARS, EYES, NOSE AND THROAT: Normocephalic and atraumatic appearing head. Pupils are equal and reactive to light. Extraocular muscles are intact with moist mucous membranes. NECK: Supple with no JVD or thyromegaly or lymphadenopathy appreciated. CARDIOVASCULAR: S1 and S2 are present, regular rate and rhythm. CHEST: Clear to auscultation bilaterally. ABDOMEN: Obese, soft, nontender to palpation. There is no obvious guarding or rebound. No fluid distention. EXTREMITIES: Nonpitting edema is noted bilaterally. Pulses are not present. SKIN: There is no obvious jaundice. LABORATORY DATA: White blood cell count 11.2, hemoglobin 11.4, platelet count is 298. Sodium 136, BUN 12, creatinine 1.1. Total bilirubin 0.6, AST 10, ALT 6. Troponin 0.01. Lipase 12. IMAGING STUDIES: An abdomen and pelvis CT scan was performed without contrast and shows marked distal fecal impaction with mass effect on the urinary bladder, mild bladder wall thickening and inflammatory changes surrounding the urinary bladder. IMPRESSION: This is a 67-year-old female with history of femur fracture in August of this year, requiring surgical repair and who has been essentially bedbound since that time receiving rehab and who has suffered constipation as a result. 1. Fecal impaction. 2. Abdominal pain. 3. History of femur fracture status post repair. 4. Bladder infection. DISCUSSION: It seems likely that this patient's fecal impaction is now recurrent and is due to her bedbound status. She likely will need a strong bowel regimen after she leaves the hospital in order to prevent another recurrence of this. She is already having bowel movements after she was disimpacted in the ER yesterday. She also appears to have a bladder infection on the CT scan, which may or may not be related to her impaction and she is receiving ceftriaxone for this. RECOMMENDATIONS: 1. The patient does not want to have an enema at this time. I also offered her a full bowel preparation to clear her colon and she does not want this either. She is going to keep having magnesium citrate on a daily basis and we will also add on a MiraLax daily as well to help with her stool flow. 2. If the patient becomes further impacted or has further symptoms, I would recommend 4 liters of GoLYTELY given slowly to clear the colon as well as enemas. The patient has agreed to do this if she becomes worse. 3. Continue other supportive measures including antibiotics for her urinary tract infection as per primary. Thank you for allowing me to participate in her care. We will continue to follow. JOB# [id number]
[2018-01-23] MEDS: Ferrous Sulfate 325 MG TAB PO SCH (17:58)
[2018-01-23] MEDS: Lactulose 10 Gm/15 mL 30mL UDC PO SCH (17:58)
[2018-01-23] MEDS: Insulin Detemir 100 units/mL 10mL Vial SUBQ SCH (17:58)
[2018-01-23] MEDS: cefTRIAXone 1 GM in Sodium Chloride 0.9% 50 ML IV SCH (17:58)
[2018-01-23] MEDS: Magnesium Citrate 1.75 GM/300 mL Bottle PO SCH (20:48)
[2018-01-23] MEDS: Sodium Chloride 0.9% 1,000 ML IV SCH (21:22)
[2018-01-24] MEDS: INSULIN ASPART SLIDING SCALE 100 UNITS/ML UNIT SUBQ SCH ×4 (07:47→20:18)
--- NOTE | 2018-01-24 09:02 | GI Progress Note ---
Subjective - Review of Systems Service Date: 01/24/18 Subjective: Having copious BMs Objective - Results Result Diagrams: 01/22/18 13:35 01/22/18 13:35 Recent Labs: Laboratory Last Values WBC 11.2 Th/cmm (4.8-10.8) H 01/22/18 13:35 RBC 4.16 Mil/cmm (3.80-5.20) 01/22/18 13:35 Hgb 11.4 gm/dL (12-16) L 01/22/18 13:35 Hct 34.0 % (41.0-60) L 01/22/18 13:35 MCV 81.6 fl (81-100) 01/22/18 13:35 MCH 27.4 pg (27.0-31.0) 01/22/18 13:35 MCHC Differential 33.5 pg (28.0-36.0) 01/22/18 13:35 RDW 21.0 % (11.5-20.0) H 01/22/18 13:35 Plt Count 298 Th/cmm (150-400) 01/22/18 13:35 MPV 7.1 fl 01/22/18 13:35 Neutrophils % 73.8 % (40.0-80.0) 01/22/18 13:35 Lymphocytes % 16.5 % (20.0-50.0) L 01/22/18 13:35 Monocytes % 2.6 % (2.0-10.0) 01/22/18 13:35 Eosinophils % 7.0 % (0.0-5.0) H 01/22/18 13:35 Basophils % 0.1 % (0.0-2.0) 01/22/18 13:35 Sodium 136 mEq/L (136-145) 01/22/18 13:35 Potassium 3.8 mEq/L (3.5-5.1) 01/22/18 13:35 Chloride 100 mEq/L (98-107) 01/22/18 13:35 Carbon Dioxide 24.3 mEq/L (21.0-31.0) 01/22/18 13:35 Anion Gap 15.5 (7.0-16.0) 01/22/18 13:35 BUN 12 mg/dL (7-25) 01/22/18 13:35 Creatinine 1.1 mg/dL (0.6-1.2) 01/22/18 13:35 Est GFR ( Amer) > 60.0 ml/min (>90) 01/22/18 13:35 Est GFR (Non-Af Amer) 52.5 ml/min 01/22/18 13:35 BUN/Creatinine Ratio 10.9 01/22/18 13:35 Glucose 164 mg/dL (70-105) H 01/22/18 13:35 POC Glucose 141 MG/DL (70 - 105) H 01/24/18 06:51 Calcium 9.6 mg/dL (8.6-10.3) 01/22/18 13:35 Total Bilirubin 0.6 mg/dL (0.3-1.0) 01/22/18 13:35 AST 10 U/L (13-39) L 01/22/18 13:35 ALT 6 U/L (7-52) L 01/22/18 13:35 Alkaline Phosphatase 68 U/L (34-104) 01/22/18 13:35 Troponin I 0.01 ng/mL (0.01-0.05) 01/22/18 13:35 Total Protein 6.3 gm/dL (6.0-8.3) 01/22/18 13:35 Albumin 3.3 gm/dL (3.7-5.3) L 01/22/18 13:35 Globulin 3.0 gm/dL 01/22/18 13:35 Albumin/Globulin Ratio 1.1 (1.0-1.8) 01/22/18 13:35 Amylase 12 U/L (29-103) L 01/22/18 13:35 Lipase 12 U/L (11-82) 01/22/18 13:35 Urine Source CLEAN C 01/22/18 14:20 Urine Color YELLOW 01/22/18 14:20 Urine Clarity HAZY (CLEAR) 01/22/18 14:20 Urine pH 7.0 (4.6 - 8.0) 01/22/18 14:20 Ur Specific [place] 1.010 (1.005-1.030) 01/22/18 14:20 Urine Protein 30 mg/dL (NEGATIVE) H 01/22/18 14:20 Urine Glucose (UA) NEGATIVE mg/dL (NEGATIVE) 01/22/18 14:20 Urine Ketones NEGATIVE mg/dL (NEGATIVE) 01/22/18 14:20 Urine Blood TRACE (NEGATIVE) 01/22/18 14:20 Urine Nitrate NEGATIVE (NEGATIVE) 01/22/18 14:20 Urine Bilirubin NEGATIVE (NEGATIVE) 01/22/18 14:20 Urine Urobilinogen 0.2 E.U./dL (0.2 - 1.0) 01/22/18 14:20 Ur Leukocyte Esterase MODERATE (NEGATIVE) H 01/22/18 14:20 Urine RBC 2-5 /hpf (0-5) 01/22/18 14:20 Urine WBC 10-25 /hpf (0-5) H 01/22/18 14:20 Ur Epithelial Cells MODERATE /lpf (FEW) 01/22/18 14:20 Urine Bacteria 3+ /hpf (NONE SEEN) H 01/22/18 14:20 - Physical Exam Vitals and I&O: Vital Signs Temp 98 F 01/24/18 04:00 Pulse 68 01/24/18 04:00 Resp 20 01/24/18 04:00 BP 151/73 01/24/18 04:00 Pulse Ox 97 01/24/18 04:00 Intake & Output 01/23/18 01/24/18 01/24/18 18:59 06:59 18:59 Intake Total 500 1300 Balance 500 1300 Weight (lbs) 104.78 kg 106.141 kg Intake: Intake, IV Amount 1000 Sodium Chloride 0.9% 1, 1000 000 ml @ 40 mls/hr IV . Q24H [facility] Rx#:[id number] Oral 500 300 Other: # Voids 3 2 # Bowel Movements 1 2 Weight Source Bedscale Bedscale Active Medications: Current Medications Acetaminophen (Tylenol) 650 mg PO Q4HR PRN PRN Reason: Fever > 101 or mild pain Stop: 03/24/18 10:36 Al Hydrox/Mg Hydrox/Simethicone (Maalox) 15 ml PO Q3H PRN PRN Reason: Indigestion Stop: 03/24/18 10:36 Amlodipine Besylate (Norvasc) 5 mg PO DAILY DES Stop: 03/25/18 08:59 Bisacodyl (Dulcolax 10 Mg Supp) 10 mg RC DAILY PRN PRN Reason: constpation Stop: 03/24/18 10:36 Cyanocobalamin (Vitamin B12) 1,000 mcg PO DAILY [facility] Stop: 03/25/18 08:59 Docusate Sodium (Colace) 100 mg PO BID [facility] Stop: 03/24/18 16:59 Last Admin: 01/23/18 17:58 Dose: 100 mg Enoxaparin Sodium (Lovenox) 40 mg SUBQ DAILY [facility] Stop: 03/25/18 08:59 Ferrous Sulfate (Iron) 325 mg PO BID [facility] Stop: 03/24/18 16:59 Last Admin: 01/23/18 17:58 Dose: 325 mg Ceftriaxone Sodium 1 gm/ (Sodium Chloride) 50 mls @ 100 mls/hr IV Q24HR [facility] Stop: 03/23/18 17:44 Last Admin: 01/23/18 17:58 Dose: 100 mls/hr Sodium Chloride (Nacl 0.9%) 1,000 mls @ 40 mls/hr IV .Q24H [facility] Stop: 03/23/18 19:29 Last Admin: 01/23/18 21:22 Dose: 40 mls/hr Insulin Aspart (Novolog Insulin Sliding Scale) 0 units SUBQ ACHS [facility]; Protocol Stop: 03/24/18 11:29 Last Admin: 01/24/18 07:47 Dose: Not Given Insulin Detemir (Levemir Insulin) 20 units SUBQ QPM [facility]; Protocol Stop: 03/24/18 16:59 Last Admin: 01/23/18 17:58 Dose: Not Given Insulin Detemir (Levemir Insulin) 5 units SUBQ QAM [facility]; Protocol Stop: 03/25/18 08:59 Lactulose (Cephulac) 10 gm PO BID [facility] Stop: 03/24/18 16:59 Last Admin: 01/23/18 17:58 Dose: Not Given Magnesium Citrate (Citroma) 17.5 gm PO DAILY [facility] Stop: 03/24/18 19:59 Last Admin: 01/23/18 20:48 Dose: 17.5 gm Magnesium Hydroxide (Milk Of Magnesia) 30 ml PO DAILY PRN PRN Reason: Constipation Stop: 03/24/18 10:36 Metoprolol Tartrate (Lopressor) 50 mg PO Q12HR [facility] Stop: 03/24/18 20:59 Last Admin: 01/23/18 20:48 Dose: 50 mg Nitroglycerin (Nitrostat) 0.4 mg SL PRN PRN PRN Reason: Chest Pain Stop: 03/24/18 10:36 Ondansetron HCl (Zofran Odt) 4 mg PO Q8H PRN PRN Reason: Nausea Stop: 03/24/18 10:36 Polyethylene Glycol (Miralax) 17 gm PO DAILY [facility] Stop: 03/24/18 08:59 Last Admin: 01/23/18 09:43 Dose: 17 gm Psyllium Hydrophilic Mucilloid (Metamucil) 1 pkt PO DAILY [facility] Stop: 03/25/18 08:59 Sodium Phosphate (Fleet Enema) 135 ml RC DAILY PRN PRN Reason: IF DULCOLAX INEFFECTIVE Stop: 03/24/18 10:36 General: Alert, Oriented x3 HEENT: Atraumatic Neck: Supple Cardiovascular: Regular rate Abdomen: Bowel sounds, Soft, Distended, no Tender, no Hepatomegaly, no Splenomegaly, no Rebound, no Mass Neurological: Normal speech Psych/Mental Status: Mental status NL Assessment/Plan - Assessment Assessment: # Femur fracture s/p repair in 08/2017 # Fecal impaction # COnstipation # Abd distension # Nausea/vomiting Fecal impaction and constipation likely a result of her largely bed bound status after he femur surgery. She has responded to manual disempaction and is now having copious BMs with magnesium citrate and miralax as bowel regimen. Plan: - cont miralax and magnesium citrate alternating. Would prefer her to only use miralax to avoid any magnesium absorption, but she wants to continue with mag citrate - will need strong bowel regimen on dc to prevent recurrence - would benefit from physical therapy and mobilization - diet as tolerated
[2018-01-24] MEDS: Ferrous Sulfate 325 MG TAB PO SCH ×2 (09:03→17:42)
[2018-01-24] MEDS: Enoxaparin 40 mg/0.4 mL 0.4mL Syr SUBQ SCH (09:07)
[2018-01-24] MEDS: Insulin Detemir 100 units/mL 10mL Vial SUBQ SCH ×2 (09:08→17:46)
[2018-01-24] MEDS: POLYETHYLENE GLYCOL 3350 17 GM PACK PO SCH (09:19)
[2018-01-24] MEDS: Lactulose 10 Gm/15 mL 30mL UDC PO SCH ×2 (09:20→17:47)
[2018-01-24] MEDS: Magnesium Citrate 1.75 GM/300 mL Bottle PO SCH (09:22)
--- NOTE | 2018-01-24 13:53 | Infectious Disease Prog Note ---
Infectious Disease Subjective - Review of Systems Service Date: 01/24/18 Subjective: Copious amount of BM. Infectious Disease Objective - Results Result Diagrams: 01/22/18 13:35 01/22/18 13:35 Recent Labs: Laboratory Last Values WBC 11.2 Th/cmm (4.8-10.8) H 01/22/18 13:35 RBC 4.16 Mil/cmm (3.80-5.20) 01/22/18 13:35 Hgb 11.4 gm/dL (12-16) L 01/22/18 13:35 Hct 34.0 % (41.0-60) L 01/22/18 13:35 MCV 81.6 fl (81-100) 01/22/18 13:35 MCH 27.4 pg (27.0-31.0) 01/22/18 13:35 MCHC Differential 33.5 pg (28.0-36.0) 01/22/18 13:35 RDW 21.0 % (11.5-20.0) H 01/22/18 13:35 Plt Count 298 Th/cmm (150-400) 01/22/18 13:35 MPV 7.1 fl 01/22/18 13:35 Neutrophils % 73.8 % (40.0-80.0) 01/22/18 13:35 Lymphocytes % 16.5 % (20.0-50.0) L 01/22/18 13:35 Monocytes % 2.6 % (2.0-10.0) 01/22/18 13:35 Eosinophils % 7.0 % (0.0-5.0) H 01/22/18 13:35 Basophils % 0.1 % (0.0-2.0) 01/22/18 13:35 Sodium 136 mEq/L (136-145) 01/22/18 13:35 Potassium 3.8 mEq/L (3.5-5.1) 01/22/18 13:35 Chloride 100 mEq/L (98-107) 01/22/18 13:35 Carbon Dioxide 24.3 mEq/L (21.0-31.0) 01/22/18 13:35 Anion Gap 15.5 (7.0-16.0) 01/22/18 13:35 BUN 12 mg/dL (7-25) 01/22/18 13:35 Creatinine 1.1 mg/dL (0.6-1.2) 01/22/18 13:35 Est GFR ( Amer) > 60.0 ml/min (>90) 01/22/18 13:35 Est GFR (Non-Af Amer) 52.5 ml/min 01/22/18 13:35 BUN/Creatinine Ratio 10.9 01/22/18 13:35 Glucose 164 mg/dL (70-105) H 01/22/18 13:35 POC Glucose 163 MG/DL (70 - 105) H 01/24/18 12:07 Calcium 9.6 mg/dL (8.6-10.3) 01/22/18 13:35 Total Bilirubin 0.6 mg/dL (0.3-1.0) 01/22/18 13:35 AST 10 U/L (13-39) L 01/22/18 13:35 ALT 6 U/L (7-52) L 01/22/18 13:35 Alkaline Phosphatase 68 U/L (34-104) 01/22/18 13:35 Troponin I 0.01 ng/mL (0.01-0.05) 01/22/18 13:35 Total Protein 6.3 gm/dL (6.0-8.3) 01/22/18 13:35 Albumin 3.3 gm/dL (3.7-5.3) L 01/22/18 13:35 Globulin 3.0 gm/dL 01/22/18 13:35 Albumin/Globulin Ratio 1.1 (1.0-1.8) 01/22/18 13:35 Amylase 12 U/L (29-103) L 01/22/18 13:35 Lipase 12 U/L (11-82) 01/22/18 13:35 Urine Source CLEAN C 01/22/18 14:20 Urine Color YELLOW 01/22/18 14:20 Urine Clarity HAZY (CLEAR) 01/22/18 14:20 Urine pH 7.0 (4.6 - 8.0) 01/22/18 14:20 Ur Specific [place] 1.010 (1.005-1.030) 01/22/18 14:20 Urine Protein 30 mg/dL (NEGATIVE) H 01/22/18 14:20 Urine Glucose (UA) NEGATIVE mg/dL (NEGATIVE) 01/22/18 14:20 Urine Ketones NEGATIVE mg/dL (NEGATIVE) 01/22/18 14:20 Urine Blood TRACE (NEGATIVE) 01/22/18 14:20 Urine Nitrate NEGATIVE (NEGATIVE) 01/22/18 14:20 Urine Bilirubin NEGATIVE (NEGATIVE) 01/22/18 14:20 Urine Urobilinogen 0.2 E.U./dL (0.2 - 1.0) 01/22/18 14:20 Ur Leukocyte Esterase MODERATE (NEGATIVE) H 01/22/18 14:20 Urine RBC 2-5 /hpf (0-5) 01/22/18 14:20 Urine WBC 10-25 /hpf (0-5) H 01/22/18 14:20 Ur Epithelial Cells MODERATE /lpf (FEW) 01/22/18 14:20 Urine Bacteria 3+ /hpf (NONE SEEN) H 01/22/18 14:20 - Physical Exam Vitals and I&O: Vital Signs Temp 98 F 01/24/18 04:00 Pulse 69 01/24/18 09:03 Resp 18 01/24/18 08:00 BP 188/78 01/24/18 09:03 Pulse Ox 97 01/24/18 04:00 Intake & Output 01/23/18 01/24/18 01/24/18 18:59 06:59 18:59 Intake Total 500 1300 Balance 500 1300 Weight (lbs) 104.78 kg 106.141 kg Intake: Intake, IV Amount 1000 Sodium Chloride 0.9% 1, 1000 000 ml @ 40 mls/hr IV . Q24H [facility] Rx#:[id number] Oral 500 300 Other: # Voids 3 2 # Bowel Movements 1 2 Stool Characteristics Soft Brown Green Weight Source Bedscale Bedscale Active Medications: Current Medications Acetaminophen (Tylenol) 650 mg PO Q4HR PRN PRN Reason: Fever > 101 or mild pain Stop: 03/24/18 10:36 Al Hydrox/Mg Hydrox/Simethicone (Maalox) 15 ml PO Q3H PRN PRN Reason: Indigestion Stop: 03/24/18 10:36 Amlodipine Besylate (Norvasc) 5 mg PO DAILY [facility] Stop: 03/25/18 08:59 Last Admin: 01/24/18 09:02 Dose: 5 mg Bisacodyl (Dulcolax 10 Mg Supp) 10 mg RC DAILY PRN PRN Reason: constpation Stop: 03/24/18 10:36 Cyanocobalamin (Vitamin B12) 1,000 mcg PO DAILY [facility] Stop: 03/25/18 08:59 Last Admin: 01/24/18 09:03 Dose: 1,000 mcg Docusate Sodium (Colace) 100 mg PO BID [facility] Stop: 03/24/18 16:59 Last Admin: 01/24/18 09:03 Dose: 100 mg Enoxaparin Sodium (Lovenox) 40 mg SUBQ DAILY [facility] Stop: 03/25/18 08:59 Last Admin: 01/24/18 09:07 Dose: 40 mg Ferrous Sulfate (Iron) 325 mg PO BID [facility] Stop: 03/24/18 16:59 Last Admin: 01/24/18 09:03 Dose: 325 mg Sodium Chloride (Nacl 0.9%) 1,000 mls @ 40 mls/hr IV .Q24H [facility] Stop: 03/23/18 19:29 Last Admin: 01/23/18 21:22 Dose: 40 mls/hr Ceftriaxone Sodium 1 gm/ (Dextrose) 50 mls @ 100 mls/hr IV Q24HR [facility] Stop: 03/23/18 17:59 Insulin Aspart (Novolog Insulin Sliding Scale) 0 units SUBQ ACHS [facility]; Protocol Stop: 03/24/18 11:29 Last Admin: 01/24/18 12:21 Dose: 3 units Insulin Detemir (Levemir Insulin) 20 units SUBQ QPM [facility]; Protocol Stop: 03/24/18 16:59 Last Admin: 01/23/18 17:58 Dose: Not Given Insulin Detemir (Levemir Insulin) 5 units SUBQ QAM [facility]; Protocol Stop: 03/25/18 08:59 Last Admin: 01/24/18 09:08 Dose: 5 units Lactulose (Cephulac) 10 gm PO BID [facility] Stop: 03/24/18 16:59 Last Admin: 01/24/18 09:20 Dose: Not Given Magnesium Citrate (Citroma) 17.5 gm PO DAILY [facility] Stop: 03/24/18 19:59 Last Admin: 01/24/18 09:22 Dose: 17.5 gm Magnesium Hydroxide (Milk Of Magnesia) 30 ml PO DAILY PRN PRN Reason: Constipation Stop: 03/24/18 10:36 Metoprolol Tartrate (Lopressor) 50 mg PO Q12HR [facility] Stop: 03/24/18 20:59 Last Admin: 01/24/18 09:03 Dose: 50 mg Nitroglycerin (Nitrostat) 0.4 mg SL PRN PRN PRN Reason: Chest Pain Stop: 03/24/18 10:36 Ondansetron HCl (Zofran Odt) 4 mg PO Q8H PRN PRN Reason: Nausea Stop: 03/24/18 10:36 Polyethylene Glycol (Miralax) 17 gm PO DAILY [facility] Stop: 03/24/18 08:59 Last Admin: 01/24/18 09:19 Dose: Not Given Psyllium Hydrophilic Mucilloid (Metamucil) 1 pkt PO DAILY [facility] Stop: 03/25/18 08:59 Last Admin: 01/24/18 09:20 Dose: Not Given Sodium Phosphate (Fleet Enema) 135 ml RC DAILY PRN PRN Reason: IF DULCOLAX INEFFECTIVE Stop: 03/24/18 10:36 General: no acute distress, well developed, well nourished HEENT: atraumatic, normocephalic, PERRLA, EOMI, moist mucous membrane Neck: supple, no thyromegaly, no lymphadenopathy Cardiovascular: S1S2, regular Lungs: clear to auscultation bilaterally, clear to percussion Abdomen: soft, no tender, no distended, no rebound Extremities: no cyanosis, no clubbing, no edema Neurological: awake, alert, oriented Skin: intact Infectious Disease Assmt/Plan - Assessment Assessment: 1. Recurrent UTI. 2. Fecal impaction. 3. hydronephrosis and hydroureter. - Plan Plan: Will conitnue rocephin IV and wait for final urine culture report. as she has receurrent UTI, she might have resistant bacteria causing UTI. So if she gets discharged earlier, than change antibiotics to meropenem. to complete 7 days of therapy.
[2018-01-24] MEDS: Meropenem 500 MG in Sodium Chloride 0.9% 100 ML IV SCH (17:50)
[2018-01-25] MEDS: Meropenem 500 MG in Sodium Chloride 0.9% 100 ML IV SCH ×3 (00:19→16:30)
[2018-01-25] MEDS: INSULIN ASPART SLIDING SCALE 100 UNITS/ML UNIT SUBQ SCH ×3 (07:55→17:49)
[2018-01-25] MEDS ORDERED: Probiotic Screen MC PRN (08:15)
--- NOTE | 2018-01-25 08:51 | GI Progress Note ---
Subjective - Review of Systems Service Date: 01/25/18 Subjective: Still having BMs, no overnight events Objective - Results Result Diagrams: 01/22/18 13:35 01/22/18 13:35 Recent Labs: Laboratory Last Values WBC 11.2 Th/cmm (4.8-10.8) H 01/22/18 13:35 RBC 4.16 Mil/cmm (3.80-5.20) 01/22/18 13:35 Hgb 11.4 gm/dL (12-16) L 01/22/18 13:35 Hct 34.0 % (41.0-60) L 01/22/18 13:35 MCV 81.6 fl (81-100) 01/22/18 13:35 MCH 27.4 pg (27.0-31.0) 01/22/18 13:35 MCHC Differential 33.5 pg (28.0-36.0) 01/22/18 13:35 RDW 21.0 % (11.5-20.0) H 01/22/18 13:35 Plt Count 298 Th/cmm (150-400) 01/22/18 13:35 MPV 7.1 fl 01/22/18 13:35 Neutrophils % 73.8 % (40.0-80.0) 01/22/18 13:35 Lymphocytes % 16.5 % (20.0-50.0) L 01/22/18 13:35 Monocytes % 2.6 % (2.0-10.0) 01/22/18 13:35 Eosinophils % 7.0 % (0.0-5.0) H 01/22/18 13:35 Basophils % 0.1 % (0.0-2.0) 01/22/18 13:35 Sodium 136 mEq/L (136-145) 01/22/18 13:35 Potassium 3.8 mEq/L (3.5-5.1) 01/22/18 13:35 Chloride 100 mEq/L (98-107) 01/22/18 13:35 Carbon Dioxide 24.3 mEq/L (21.0-31.0) 01/22/18 13:35 Anion Gap 15.5 (7.0-16.0) 01/22/18 13:35 BUN 12 mg/dL (7-25) 01/22/18 13:35 Creatinine 1.1 mg/dL (0.6-1.2) 01/22/18 13:35 Est GFR ( Amer) > 60.0 ml/min (>90) 01/22/18 13:35 Est GFR (Non-Af Amer) 52.5 ml/min 01/22/18 13:35 BUN/Creatinine Ratio 10.9 01/22/18 13:35 Glucose 164 mg/dL (70-105) H 01/22/18 13:35 POC Glucose 103 MG/DL (70 - 105) 01/25/18 06:29 Calcium 9.6 mg/dL (8.6-10.3) 01/22/18 13:35 Total Bilirubin 0.6 mg/dL (0.3-1.0) 01/22/18 13:35 AST 10 U/L (13-39) L 01/22/18 13:35 ALT 6 U/L (7-52) L 01/22/18 13:35 Alkaline Phosphatase 68 U/L (34-104) 01/22/18 13:35 Troponin I 0.01 ng/mL (0.01-0.05) 01/22/18 13:35 Total Protein 6.3 gm/dL (6.0-8.3) 01/22/18 13:35 Albumin 3.3 gm/dL (3.7-5.3) L 01/22/18 13:35 Globulin 3.0 gm/dL 01/22/18 13:35 Albumin/Globulin Ratio 1.1 (1.0-1.8) 01/22/18 13:35 Amylase 12 U/L (29-103) L 01/22/18 13:35 Lipase 12 U/L (11-82) 01/22/18 13:35 Urine Source CLEAN C 01/22/18 14:20 Urine Color YELLOW 01/22/18 14:20 Urine Clarity HAZY (CLEAR) 01/22/18 14:20 Urine pH 7.0 (4.6 - 8.0) 01/22/18 14:20 Ur Specific [place] 1.010 (1.005-1.030) 01/22/18 14:20 Urine Protein 30 mg/dL (NEGATIVE) H 01/22/18 14:20 Urine Glucose (UA) NEGATIVE mg/dL (NEGATIVE) 01/22/18 14:20 Urine Ketones NEGATIVE mg/dL (NEGATIVE) 01/22/18 14:20 Urine Blood TRACE (NEGATIVE) 01/22/18 14:20 Urine Nitrate NEGATIVE (NEGATIVE) 01/22/18 14:20 Urine Bilirubin NEGATIVE (NEGATIVE) 01/22/18 14:20 Urine Urobilinogen 0.2 E.U./dL (0.2 - 1.0) 01/22/18 14:20 Ur Leukocyte Esterase MODERATE (NEGATIVE) H 01/22/18 14:20 Urine RBC 2-5 /hpf (0-5) 01/22/18 14:20 Urine WBC 10-25 /hpf (0-5) H 01/22/18 14:20 Ur Epithelial Cells MODERATE /lpf (FEW) 01/22/18 14:20 Urine Bacteria 3+ /hpf (NONE SEEN) H 01/22/18 14:20 - Physical Exam Vitals and I&O: Vital Signs Temp 97.7 F 01/24/18 20:00 Pulse 66 01/24/18 20:17 Resp 19 01/24/18 20:00 BP 161/72 01/24/18 20:17 Pulse Ox 97 01/24/18 20:00 Intake & Output 01/24/18 01/25/18 01/25/18 18:59 06:59 18:59 Intake Total 850 Balance 850 Weight (lbs) 106.141 kg 105.687 kg Intake: Intake, IV Amount 100 Meropenem 500 mg In 100 Sodium Chloride 0.9% 100 ml @ 100 mls/hr IV Q8H [facility] Rx#:[id number] Oral 750 Other: # Voids 5 2 # Bowel Movements 3 1 Stool Characteristics Soft Brown Green Weight Source Bedscale Bedscale Active Medications: Current Medications Acetaminophen (Tylenol) 650 mg PO Q4HR PRN PRN Reason: Fever > 101 or mild pain Stop: 03/24/18 10:36 Al Hydrox/Mg Hydrox/Simethicone (Maalox) 15 ml PO Q3H PRN PRN Reason: Indigestion Stop: 03/24/18 10:36 Amlodipine Besylate (Norvasc) 5 mg PO DAILY [facility] Stop: 03/25/18 08:59 Last Admin: 01/24/18 09:02 Dose: 5 mg Bisacodyl (Dulcolax 10 Mg Supp) 10 mg RC DAILY PRN PRN Reason: constpation Stop: 03/24/18 10:36 Cyanocobalamin (Vitamin B12) 1,000 mcg PO DAILY [facility] Stop: 03/25/18 08:59 Last Admin: 01/24/18 09:03 Dose: 1,000 mcg Docusate Sodium (Colace) 100 mg PO BID [facility] Stop: 03/24/18 16:59 Last Admin: 01/24/18 17:42 Dose: 100 mg Enoxaparin Sodium (Lovenox) 40 mg SUBQ DAILY [facility] Stop: 03/25/18 08:59 Last Admin: 01/24/18 09:07 Dose: 40 mg Ferrous Sulfate (Iron) 325 mg PO BID [facility] Stop: 03/24/18 16:59 Last Admin: 01/24/18 17:42 Dose: 325 mg Sodium Chloride (Nacl 0.9%) 1,000 mls @ 40 mls/hr IV .Q24H [facility] Stop: 03/23/18 19:29 Last Admin: 01/23/18 21:22 Dose: 40 mls/hr Meropenem 500 mg/ Sodium (Chloride) 100 mls @ 100 mls/hr IV Q8H [facility] Stop: 03/25/18 15:59 Last Admin: 01/25/18 00:19 Dose: 100 mls/hr Insulin Aspart (Novolog Insulin Sliding Scale) 0 units SUBQ ACHS [facility]; Protocol Stop: 03/24/18 11:29 Last Admin: 01/25/18 07:55 Dose: Not Given Insulin Detemir (Levemir Insulin) 20 units SUBQ QPM [facility]; Protocol Stop: 03/24/18 16:59 Last Admin: 01/24/18 17:46 Dose: Not Given Insulin Detemir (Levemir Insulin) 5 units SUBQ QAM [facility]; Protocol Stop: 03/25/18 08:59 Last Admin: 01/24/18 09:08 Dose: 5 units Lactobacillus Rhamnosus (Culturelle 15b) 1 each PO DAILY [facility] Stop: 03/26/18 08:59 Lactulose (Cephulac) 10 gm PO BID [facility] Stop: 03/24/18 16:59 Last Admin: 01/24/18 17:47 Dose: Not Given Magnesium Citrate (Citroma) 17.5 gm PO DAILY [facility] Stop: 03/24/18 19:59 Last Admin: 01/24/18 09:22 Dose: 17.5 gm Magnesium Hydroxide (Milk Of Magnesia) 30 ml PO DAILY PRN PRN Reason: Constipation Stop: 03/24/18 10:36 Metoprolol Tartrate (Lopressor) 50 mg PO Q12HR [facility] Stop: 03/24/18 20:59 Last Admin: 01/24/18 20:17 Dose: 50 mg Miscellaneous (Probiotic Screen) 1 ea MC PRN PRN PRN Reason: PROTOCOL Stop: 03/26/18 08:14 Nitroglycerin (Nitrostat) 0.4 mg SL PRN PRN PRN Reason: Chest Pain Stop: 03/24/18 10:36 Ondansetron HCl (Zofran Odt) 4 mg PO Q8H PRN PRN Reason: Nausea Stop: 03/24/18 10:36 Polyethylene Glycol (Miralax) 17 gm PO DAILY DES Stop: 03/24/18 08:59 Last Admin: 01/24/18 09:19 Dose: Not Given Psyllium Hydrophilic Mucilloid (Metamucil) 1 pkt PO DAILY DES Stop: 03/25/18 08:59 Last Admin: 01/24/18 09:20 Dose: Not Given Sodium Phosphate (Fleet Enema) 135 ml RC DAILY PRN PRN Reason: IF DULCOLAX INEFFECTIVE Stop: 03/24/18 10:36 General: Alert, Oriented x3 HEENT: Atraumatic Neck: Supple Cardiovascular: Regular rate Abdomen: Bowel sounds, Soft, Distended, no Tender, no Hepatomegaly, no Splenomegaly, no Rebound, no Mass Neurological: Normal speech Psych/Mental Status: Mental status NL Assessment/Plan - Assessment Assessment: # Femur fracture s/p repair in 08/2017 # Fecal impaction # COnstipation # Abd distension # Nausea/vomiting Fecal impaction and constipation likely a result of her largely bed bound status after he femur surgery. She has responded to manual disempaction and is now having copious BMs with magnesium citrate and miralax as bowel regimen. Plan: - cont miralax and magnesium citrate alternating. Would prefer her to only use miralax to avoid any magnesium absorption, but she wants to continue with mag citrate - will need strong bowel regimen on dc to prevent recurrence - would benefit from physical therapy and mobilization - diet as tolerated GI to see this patient as needed, please call with any questions
[2018-01-25] MEDS ORDERED: Lactobacillus Rhamnosus GG 15 Billion CFU CAP.SPRINK PO SCH (09:00)
[2018-01-25] MEDS: Insulin Detemir 100 units/mL 10mL Vial SUBQ SCH ×2 (09:38→17:50)
[2018-01-25] MEDS: Enoxaparin 40 mg/0.4 mL 0.4mL Syr SUBQ SCH (09:38)
[2018-01-25] MEDS: Ferrous Sulfate 325 MG TAB PO SCH ×2 (09:44→17:53)
[2018-01-25] MEDS: Magnesium Citrate 1.75 GM/300 mL Bottle PO SCH (09:47)
[2018-01-25] MEDS: POLYETHYLENE GLYCOL 3350 17 GM PACK PO SCH (09:56)
[2018-01-25] MEDS: Lactulose 10 Gm/15 mL 30mL UDC PO SCH ×2 (09:56→17:17)
== END 2018-01-25 18:30 | DRG 389 ==
LOC: ER 13:06 → MSI 17:59
PROVIDERS: ADMIT Internal Medicine Infectious Disease; ATTEND Internal Medicine Infectious Disease
DX: K56.41 Fecal impaction (principal); N13.6 Pyonephrosis; E11.9 Type 2 diabetes mellitus without complications; I10 Essential (primary) hypertension; M85.80 Other specified disorders of bone density and structure, unspecified site; I25.10 Atherosclerotic heart disease of native coronary artery without angina pectoris; Z74.01 Bed confinement status; Z90.49 Acquired absence of other specified parts of digestive tract; Z87.311 Personal history of (healed) other pathological fracture; Z79.4 Long term (current) use of insulin
CPT/HCPCS: 36415-UA; 80053-TC; 81001-TC; 82150-TC; 82948-90; 83690-TC; 84484-TC; 85025-TC; 87086-90; 93005; 96375; J0696; J1650; J1815; J2185; J2543; Z7610